=== PATIENT | male | born 1950 | race Caucasian/White ===

== ENCOUNTER 2017-07-17 22:27 | Emergency (ER) | payer MEDICARE ==
[~2017-07-17] VITALS: Ht 180.3 cm; Wt 93.0 kg
[~2017-07-17 22:27] MED LIST: Aldactone100 MG PO; DIPH50 PO; MIRT15 PO; QUET100 PO; QUET300 PO
[2017-07-18 01:15] LABS: Calcium, Ionized (POC) 1.23 mmol/L (1.10-1.46); Chloride (POC) 107 mmol/L (98-108); Creatinine (POC) 0.8 mg/dL (0.8-1.3); Glucose (ISTAT POC) 116 mg/dL (70-99); Hemoglobin (POC) 13.9 g/dL (13.5-17.5); Potassium (POC) 3.3 mmol/L (3.5-5.5); Sodium (POC) 147 mmol/L (135-148); Total CO2 (POC) 27 mmol/L (21-32)
[2018-05-22] MEDS ORDERED: LACT10SY PO (10:44)
[2018-05-22] MEDS ORDERED: Hair, Skin & N1 EACH PO (10:45)
[2018-06-02] MEDS ORDERED: Cipro500 MG PO (00:57)
== END 2017-07-18 01:20 | disposition home or self-care (01) ==
LOC: ER 22:27
PROVIDERS: Emergency Medicine
DX: F20.9 Schizophrenia, unspecified (principal); F10.20 Alcohol dependence, uncomplicated; F17.200 Nicotine dependence, unspecified, uncomplicated
CPT/HCPCS: 36415; 80047; 85014; 99284

== ENCOUNTER 2018-06-02 19:39 | Emergency (ER) | payer MEDICARE ==
[~2018-06-02] VITALS: Ht 175.3 cm; Wt 90.7 kg
[~2018-06-02 19:39] MED LIST changes: +Cipro500 MG PO; +Hair, Skin & N1 EACH PO; +LACT10SY PO
== END 2018-06-02 20:17 | disposition home or self-care (01) ==
LOC: ER 19:39
DX: N39.0 Urinary tract infection, site not specified (principal); F17.210 Nicotine dependence, cigarettes, uncomplicated; Z59.0 Homelessness
CPT/HCPCS: 99281

== ENCOUNTER 2018-07-30 20:45 | Inpatient (IN) | payer MEDICARE ==
[~2018-07-30] VITALS: Ht 180.3 cm; Wt 95.4 kg
[2018-07-30 22:39] LABS: BASOPHILS ABSOLUTE AUTO 0.04 K/mm3 (0.00-0.23); BASOPHILS PERCENT AUTO 1 % (0-2); EOSINOPHILS ABSOLUTE AUTO 0.09 K/mm3 (0.00-0.68); EOSINOPHILS PERCENT AUTO 1 % (0-6); Hemoglobin 13.8 g/dL (13.5-17.5); IMMATURE GRAN ABSOLUTE AUTO 0.02 K/mm3 (0.00-0.10); IMMATURE GRAN PERCENT AUTO 0 % (0-1); LYMPHOCYTES ABSOLUTE AUTO 1.49 K/mm3 (0.84-5.20); LYMPHOCYTES PERCENT AUTO 17 % (21-46); MONOCYTES ABSOLUTE AUTO 1.18 K/mm3 (0.16-1.47); MONOCYTES PERCENT AUTO 14 % (4-13); Mean Corpuscular HGB 33.1 pg (26.0-34.0); Mean Corpuscular HGB Conc 33.7 g/dL (31.5-36.5); Mean Corpuscular Volume 98 fL (80-100); NEUTROPHILS ABSOLUTE AUTO 5.93 K/mm3 (1.96-9.15); NEUTROPHILS PERCENT AUTO 68 % (41-73); Platelet Count 166 K/mm3 (150-400); RDW Coefficient Variation 14.3 % (11.7-14.2); Red Blood Cell Count 4.17 M/mm3 (4.30-5.90); White Blood Cell Count 8.75 K/mm3 (4.00-11.30)
[2018-07-30 22:59] LABS: Alanine Aminotransfer (ALT/SGP 33 U/L (12-78); Albumin, Blood 2.8 g/dL (3.4-5.0); Albumin/Globulin Ratio 0.6 (0.8-1.8); Alk Phos 98 U/L (50-136); Anion Gap 8 mmol/L (6-16); Aspartate Aminotrans (AST/SGOT 31 U/L (12-37); Bilirubin, Total 2.2 mg/dL (0.1-1.0); Blood Urea Nitrogen 9 mg/dL (8-24); Bun/Creatinine Ratio 10.9 (12.0-20.0); CO2, Blood 23 mmol/L (21-32); Calcium, Blood 8.8 mg/dL (8.5-10.1); Chloride, Blood 110 mmol/L (98-108); Creatinine, Blood 0.83 mg/dL (0.60-1.20); Globulin, Blood 4.8 g/dL (2.2-4.0); Glomerular Filtration Rate >60 (60-); Glucose, Blood 167 mg/dL (70-99); Potassium, Blood 3.4 mmol/L (3.5-5.5); Sodium, Blood 141 mmol/L (136-145); Total Protein, Blood 7.6 g/dL (6.4-8.2)
[2018-07-31 01:04] LABS: Magnesium, Blood 2.1 mg/dL (1.6-2.4)
[2018-07-31 04:27] LABS: Hemoglobin 12.7 g/dL (13.5-17.5); Mean Corpuscular HGB 32.9 pg (26.0-34.0); Mean Corpuscular HGB Conc 33.4 g/dL (31.5-36.5); Mean Corpuscular Volume 98 fL (80-100); Mean Platelet Volume 10.9 fL (9.1-12.4); Platelet Count 147 K/mm3 (150-400); RDW Coefficient Variation 14.1 % (11.7-14.2); RDW Standard Deviation 51.4 fL (35.1-46.3); Red Blood Cell Count 3.86 M/mm3 (4.30-5.90); White Blood Cell Count 8.77 K/mm3 (4.00-11.30)
[2018-07-31 04:41] LABS: International Normalized Ratio 1.29; Prothrombin Time Results 13.4 Sec (9.7-11.5)
[2018-07-31 04:44] LABS: Anion Gap 8 mmol/L (6-16); Blood Urea Nitrogen 9 mg/dL (8-24); Bun/Creatinine Ratio 10.1 (12.0-20.0); CO2, Blood 24 mmol/L (21-32); Calcium, Blood 8.4 mg/dL (8.5-10.1); Chloride, Blood 111 mmol/L (98-108); Creatinine, Blood 0.89 mg/dL (0.60-1.20); Glomerular Filtration Rate >60 (60-); Glucose, Blood 147 mg/dL (70-99); Potassium, Blood 3.2 mmol/L (3.5-5.5); Sodium, Blood 143 mmol/L (136-145)
--- NOTE | 2018-07-31 04:51 | NUR ---
SHIFT SUMMARY PT ADMITTED FOR CELLULITIS/ABSCESS OF RLE. PT HAS A 20 IV IN THE RT FOREARM, PATENT. HE IS A 1 PERSON STANDBY ASSIST FOR NOW DUE TO CONFUSION AND I AM UNSURE OF HIS AMBULATION ABILITIES. HE IS UTILIZING A URINAL FOR NOW. HE IS HOMELESS SO PLACEMENT MAY BE AN ISSUE. WOUND CULTURES HAVE BEEN SENT, HE HAS HAD A LOW GRADE FEVER SINCE ADMIT. PT DENIES ALCOHOL USE, BUT WE ARE DOING CIWA EVALS PRN AND Q 2HRS UNTIL CLEAR OF CONCERN. HIS AFFECTED LEG IS NOW ELEVATED ABOVE HEART, PER ORDERS. HE HAD A CRITICAL LACTIC DRAWN IN THE ED OF 2.2 (0.4-2.0 W[address]). A CT W/CONTRAST CONFIRMED CELLULITIS. HE IS ON ROOM AIR AND REGULAR DIET. IV ZOSYN AND VANCO (MANAGED BY PHARMACY) HAVE BEEN GIVEN SO FAR. ALSO TO RECEIVE NS-KCL. HE IS A Q2 HR TURN, AND ON ASPIRATION PRECAUTIONS.
--- NOTE | 2018-07-31 06:40 | NUR ---
*LATE ENTRY* RECEIVED HANDOFF FROM ED NURSE DEV AND 0033 HRS RECEIVED HANDOFF REPORT. PT ADMITTED FOR CELLULITIS/ABSCESS OF RLE. PT HAS LOW GRADE FEVER, ON RA, NORMALLY WALKS. PT IS HOMELESS. PT HAD CRITICAL LAB VALUE OF 2.2 IN ED. ED SENT WOUND CULTURE. PT TRANSFERED TO MED FLOOR WNL. ORIENTED TO UNIT, VS TAKEN. PT ON IV ANTIBIOTICS AND NS KCL. LOW POTASSIUM LAB VALUE. WILL CONTINUE TO [id number]
--- NOTE | 2018-07-31 16:47 | NUR ---
I asked the patient if I could be involved in his care on 08/01/18 and the patient agreed.
--- NOTE | 2018-07-31 19:30 | NUR ---
SHIFT SUMMARY: NO ACUTE CHANGES TO REPORT THIS SHIFT. PT A&O; CALM AND COOPERATIVE WITH CARE. NO C/O PAIN OR NAUSEA THIS SHIFT. CELLULITIS RLE; DRESSING IN PLACE; IV ABX CONTINUING. CIWA Q2H. REPORT GIVEN TO ONCOMING RN.
[2018-08-01 04:31] LABS: BASOPHILS ABSOLUTE AUTO 0.04 K/mm3 (0.00-0.23); BASOPHILS PERCENT AUTO 1 % (0-2); EOSINOPHILS ABSOLUTE AUTO 0.21 K/mm3 (0.00-0.68); EOSINOPHILS PERCENT AUTO 4 % (0-6); Hematocrit 35.9 % (37.0-53.0); IMMATURE GRAN ABSOLUTE AUTO 0.01 K/mm3 (0.00-0.10); IMMATURE GRAN PERCENT AUTO 0 % (0-1); LYMPHOCYTES ABSOLUTE AUTO 1.16 K/mm3 (0.84-5.20); LYMPHOCYTES PERCENT AUTO 19 % (21-46); MONOCYTES ABSOLUTE AUTO 0.66 K/mm3 (0.16-1.47); MONOCYTES PERCENT AUTO 11 % (4-13); Mean Corpuscular HGB 33.5 pg (26.0-34.0); Mean Corpuscular HGB Conc 33.4 g/dL (31.5-36.5); Mean Corpuscular Volume 100 fL (80-100); Mean Platelet Volume 10.7 fL (9.1-12.4); NEUTROPHILS ABSOLUTE AUTO 3.92 K/mm3 (1.96-9.15); NEUTROPHILS PERCENT AUTO 65 % (41-73); Platelet Count 141 K/mm3 (150-400); RDW Coefficient Variation 13.9 % (11.7-14.2); RDW Standard Deviation 51.8 fL (35.1-46.3); Red Blood Cell Count 3.58 M/mm3 (4.30-5.90)
[2018-08-01 04:47] LABS: Albumin, Blood 2.2 g/dL (3.4-5.0); Anion Gap 6 mmol/L (6-16); Blood Urea Nitrogen 9 mg/dL (8-24); Bun/Creatinine Ratio 10.8 (12.0-20.0); CO2, Blood 23 mmol/L (21-32); Chloride, Blood 115 mmol/L (98-108); Creatinine, Blood 0.83 mg/dL (0.60-1.20); Glomerular Filtration Rate >60 (60-); Glucose, Blood 106 mg/dL (70-99); Phosphorus, Blood 2.3 mg/dL (2.5-4.9); Potassium, Blood 3.5 mmol/L (3.5-5.5); Sodium, Blood 144 mmol/L (136-145)
--- NOTE | 2018-08-01 06:34 | NUR ---
SHIFT SUMMARY PT STATED HE DIDN'T REALLY SLEEP THROUGH NIGHT BUT HE DOESN'T REALLY ANYHOW HE SAID. CIWA WAS 3 SOME TREMORS IN HANDS FELT. HE DOZED ON AND OFF FOR A LITTLE BUT WAS AWAKE A LOT OF THE NIGHT. NO C/O PAIN. USING URINAL. CALL LIGHT REACH
--- NOTE | 2018-08-01 07:01 | NUR ---
ASSUMED CARE OF PT- BEDSIDE REPORT COMPLETED WITH NIGHT RN TREVER, PROCESS WORKER MICHELLE PRESENT FOR REPORTPT APPROVED OF STUDENT ASSISTING WITH CARE. PT APPEARS ALERT AND ORIENTED, CIWA ORDERED. PT STATED [place] AND IS NOT ALLOWED TO DRINK, STATED HE HAS NOT HAD A DRINK IN A YEAR. PT HAS Hx SCHITZOPHRENIA AND MAY NOT BE ORIENTED HE APPEARS WILL CONTINUE TO MONITOR CIWA. CURRENT SCORE IS 3. PER REPORT FROM NIGHT RN THIS IS THE AVERAGE SCORE ON THE CIWA THAT THE PT RECIEVED T/O THE NIGHT.
[2018-08-01 15:47] LABS: Vancomycin, Trough 11.1 ug/mL (5.0-10.0)
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
[2018-08-02 04:40] LABS: BASOPHILS ABSOLUTE AUTO 0.03 K/mm3 (0.00-0.23); BASOPHILS PERCENT AUTO 1 % (0-2); EOSINOPHILS ABSOLUTE AUTO 0.22 K/mm3 (0.00-0.68); EOSINOPHILS PERCENT AUTO 4 % (0-6); Hematocrit 36.8 % (37.0-53.0); Hemoglobin 12.4 g/dL (13.5-17.5); IMMATURE GRAN ABSOLUTE AUTO 0.01 K/mm3 (0.00-0.10); IMMATURE GRAN PERCENT AUTO 0 % (0-1); LYMPHOCYTES ABSOLUTE AUTO 0.81 K/mm3 (0.84-5.20); LYMPHOCYTES PERCENT AUTO 16 % (21-46); MONOCYTES ABSOLUTE AUTO 0.52 K/mm3 (0.16-1.47); MONOCYTES PERCENT AUTO 10 % (4-13); Mean Corpuscular HGB 33.5 pg (26.0-34.0); Mean Corpuscular HGB Conc 33.7 g/dL (31.5-36.5); Mean Corpuscular Volume 100 fL (80-100); Mean Platelet Volume 10.7 fL (9.1-12.4); NEUTROPHILS ABSOLUTE AUTO 3.43 K/mm3 (1.96-9.15); NEUTROPHILS PERCENT AUTO 68 % (41-73); Platelet Count 155 K/mm3 (150-400); RDW Coefficient Variation 13.8 % (11.7-14.2); RDW Standard Deviation 50.5 fL (35.1-46.3); White Blood Cell Count 5.02 K/mm3 (4.00-11.30)
[2018-08-02 05:09] LABS: Albumin, Blood 2.1 g/dL (3.4-5.0); Anion Gap 8 mmol/L (6-16); Blood Urea Nitrogen 8 mg/dL (8-24); Bun/Creatinine Ratio 9.7 (12.0-20.0); CO2, Blood 21 mmol/L (21-32); Calcium, Blood 8.2 mg/dL (8.5-10.1); Chloride, Blood 117 mmol/L (98-108); Creatinine, Blood 0.83 mg/dL (0.60-1.20); Glomerular Filtration Rate >60 (60-); Glucose, Blood 100 mg/dL (70-99); Magnesium, Blood 1.9 mg/dL (1.6-2.4); Phosphorus, Blood 2.7 mg/dL (2.5-4.9); Potassium, Blood 3.6 mmol/L (3.5-5.5); Sodium, Blood 146 mmol/L (136-145)
--- NOTE | 2018-08-02 05:51 | NUR ---
SHIFT SUMMARY PT VERY PLEASANT CALM SMILEY COOPERATIVE. CIWA SCORE 1-2 ALL SHIFT. HE SLEPT ON AND OFF T/O NOC C OCCASIONAL SNORING NOTED. USING URINAL IN BED. USING CALL LIGHT APPROPRIATELY. NO C/O PAIN.
--- NOTE | 2018-08-02 12:38 | NUR ---
CALLED DR JIMENEZ PT HAS FINE CRACKLES IN THE BASES, THIS IS A CHANGE FROM YESTERDAY REQUESTED HOLD FOR IVF UNTIL DR CAN SEE THE PT. OK TO HOLD THE IVF AT THIS TIME. IV SALINE LOCKED.
--- NOTE | 2018-08-02 17:03 | NUR ---
PT HAS BEEN HAPPY AND PLEASENTLY CONFUSED T/O THE SHIFT UNTIL JUST BEFORE 1700. PT BECAME AGGITATED AND PARANOID TALKING TO PELPLE NOT IN THE ROOM. PT APPEARED TO BE GETTING VIOLENT IN HIS FACIAL FEATURES, MANERISIMS AND EXPRESSIONS. PT MEDICATED WITH 50MG LIBRIUM PER EMAR. PT SCORED 17 ON CIWA. WHILE PT WAS BEING MEDICATED HE BEGAN TO TALK ABOUT ASSASSINS AND MICROCHIPS IN THE BRAINS THAT CAME FROM ALIEN TECHNOLOGY. PT ABSOLUTELY REFUSED TO ALLOW RN TO DO THE BANDAGE CHANGE, PER THE PT ONLY THE DOCTOR THAT DID THE PROCEDURE COULD CHANGE IT. WILL REATTEMPT LATER WHEN THE PT IS LESS AGGITATED.
--- NOTE | 2018-08-02 19:23 | NUR ---
SHIFT SUMMARY- PT MUCH MORE PLEASENT, HOWEVER HE IS REFUSING TO ALLOW STAFF TO CHANGE THE WOUND DRESSING. BEDSIDE REPORT COMPLTE WITH NIGHT RICK PALACIO. PT SITTING UP IN BED WITH THE CALL LIGHT IN REACH, NO CURRENT C/O PAIN. PT HAD A FEVER OF 100.4 TODAY MEDICATED WITH TYLENOL NEXT TEMP WAS 100.8. REMOVED BLANKETS ANDF TURNED DOWN THE ROOM TEMP, NEXT TEMP CHECK WAS 101.3, 2 HOURS AFTER TYLENOL HAD BEEN GIVEN. WHEN IV VANCO COMPLETED RECHECKED AND TEMP WAS BACK DOWN TO 99.4. PT IS ALERT AND ORIENTED TO SELF, PLEASENT AT THIS TIME.
[2018-08-03 04:25] LABS: BASOPHILS ABSOLUTE AUTO 0.04 K/mm3 (0.00-0.23); BASOPHILS PERCENT AUTO 1 % (0-2); EOSINOPHILS ABSOLUTE AUTO 0.24 K/mm3 (0.00-0.68); EOSINOPHILS PERCENT AUTO 5 % (0-6); Hematocrit 36.5 % (37.0-53.0); Hemoglobin 12.2 g/dL (13.5-17.5); IMMATURE GRAN ABSOLUTE AUTO 0.01 K/mm3 (0.00-0.10); IMMATURE GRAN PERCENT AUTO 0 % (0-1); LYMPHOCYTES PERCENT AUTO 20 % (21-46); MONOCYTES ABSOLUTE AUTO 0.53 K/mm3 (0.16-1.47); MONOCYTES PERCENT AUTO 11 % (4-13); Mean Corpuscular HGB 33.2 pg (26.0-34.0); Mean Corpuscular HGB Conc 33.4 g/dL (31.5-36.5); Mean Corpuscular Volume 99 fL (80-100); Mean Platelet Volume 10.6 fL (9.1-12.4); NEUTROPHILS ABSOLUTE AUTO 3.19 K/mm3 (1.96-9.15); NEUTROPHILS PERCENT AUTO 64 % (41-73); Platelet Count 166 K/mm3 (150-400); RDW Coefficient Variation 13.8 % (11.7-14.2); RDW Standard Deviation 50.7 fL (35.1-46.3); Red Blood Cell Count 3.68 M/mm3 (4.30-5.90); White Blood Cell Count 5.01 K/mm3 (4.00-11.30)
--- NOTE | 2018-08-03 05:09 | NUR ---
SHIFT SUMMARY PT HAD SMALL BM DURING THE NIGHT. CHARITY PAIN, SLEPT FAIR. CIWA 5-6 DURING THE NIGHT. WILL CONTINEU TO MONITOR.
[2018-08-03 15:40] LABS: Vancomycin, Trough 14.2 ug/mL (5.0-10.0)
--- NOTE | 2018-08-03 16:13 | NUR ---
WOUND DRESSING CHANGED REMOVED PACKING FROM THE PTS WOUND BED, CLEANED WOUND AND REAPPLIED CANDIDA FORM PACKING AND RE WRAPPED THE WOUND USEING A CLEAN TECHNIQUE, PT TOLERATED THE PROCEDURE WELL
--- NOTE | 2018-08-03 19:19 | NUR ---
PT IS ALERT ORIENTED X3, HOWEVER THE PT HAS GRADIOUS DILUSIONS AT TIMES, THE PT APPEARS TO BE BREATHING EASILY ON RA AT THIS TIME, THE PT DENIED PAIN T/O THE DAY, PT REMAINED IN BED T/O THE DAY, THE PT WAS ABLE TO MOVE HIMSELF IN BED EASILY HOWEVER, WOUND DRESSING ON PTS RIGHT LEG CHANGED THE PT TOLERATED IT WELL, CALL LIGHT IN REACH, BED IN LOW POSITION, BED ALARM ON
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
[2018-08-04 08:50] LABS: BASOPHILS ABSOLUTE AUTO 0.04 K/mm3 (0.00-0.23); BASOPHILS PERCENT AUTO 1 % (0-2); EOSINOPHILS ABSOLUTE AUTO 0.23 K/mm3 (0.00-0.68); EOSINOPHILS PERCENT AUTO 4 % (0-6); Hematocrit 39.7 % (37.0-53.0); Hemoglobin 13.4 g/dL (13.5-17.5); IMMATURE GRAN ABSOLUTE AUTO 0.02 K/mm3 (0.00-0.10); IMMATURE GRAN PERCENT AUTO 0 % (0-1); LYMPHOCYTES ABSOLUTE AUTO 0.76 K/mm3 (0.84-5.20); LYMPHOCYTES PERCENT AUTO 13 % (21-46); MONOCYTES ABSOLUTE AUTO 0.57 K/mm3 (0.16-1.47); MONOCYTES PERCENT AUTO 9 % (4-13); Mean Corpuscular HGB 33.3 pg (26.0-34.0); Mean Corpuscular HGB Conc 33.8 g/dL (31.5-36.5); Mean Corpuscular Volume 99 fL (80-100); Mean Platelet Volume 10.5 fL (9.1-12.4); NEUTROPHILS ABSOLUTE AUTO 4.43 K/mm3 (1.96-9.15); NEUTROPHILS PERCENT AUTO 73 % (41-73); Platelet Count 172 K/mm3 (150-400); RDW Coefficient Variation 13.9 % (11.7-14.2); RDW Standard Deviation 50.5 fL (35.1-46.3); Red Blood Cell Count 4.02 M/mm3 (4.30-5.90); White Blood Cell Count 6.05 K/mm3 (4.00-11.30)
[2018-08-04 09:11] LABS: Anion Gap 7 mmol/L (6-16); Blood Urea Nitrogen 7 mg/dL (8-24); Bun/Creatinine Ratio 8.9 (12.0-20.0); CO2, Blood 26 mmol/L (21-32); Calcium, Blood 7.7 mg/dL (8.5-10.1); Chloride, Blood 112 mmol/L (98-108); Creatinine, Blood 0.78 mg/dL (0.60-1.20); Glomerular Filtration Rate >60 (60-); Glucose, Blood 144 mg/dL (70-99); Potassium, Blood 3.6 mmol/L (3.5-5.5); Sodium, Blood 145 mmol/L (136-145)
--- NOTE | 2018-08-04 13:30 | NUR ---
A BEDBATH WAS OFFERED TO PATIENT WELL SHOWER AND PATIENT DECLINED THIS MORNING WELL THIS AFTERNOON. PATIENT STATED TO ME THAT HE ONLY WANTED TO WASH HIS HAIR. A SHOWER CAP WAS OFFERED AND PATIENT DECLINED. HE WAS VERY AGGIATATED AND WAS REFUSING ANYTHINGTHAT WAS OFFERED TO HIM AND CARE THAT WAS BEING OFFERED OR PROVIDED. RN NOTIFIED.
--- NOTE | 2018-08-04 17:53 | NUR ---
PLACED PATIENT ON BEDPAN AFTER PATIENT WAS ON BEDPAN FOR A WHILE AND DID NOT CALL TO GET OFF I WENT IN MULTIPLE TIMES TO TRY TO TAKE PATIENT OFF AND PATIENT HAS REFUSED MULTIPLE TIMES TO GET OFF AND STATES TO ME THAT HE IS STILL GOING AND GETS UPSET AT ME WHEN I LET HIM KNOW THAT I AM GOING TO GET HIM OFF. PATIENT IS REFUSING TO GET OFF THE BEDPAN. RN NOTIFIED.
--- NOTE | 2018-08-04 18:07 | NUR ---
PATIENT IS OFF THE BEDPAN.
--- NOTE | 2018-08-04 19:09 | NUR ---
SHIFT SUMMARY PT A&OX1, PT IRRITBLE, NOT COOPERATIVE WITH CARE. PT GRANDIOSE DELUSIONS, STATING HES "STILL PART OF THE FBI". PT DENIES PAIN, SOB AND N/V DURING SHIFT. PT MOVES SELF IN BED. PT HAD ONE INCONTINENT EPISODE STOOL THIS AFTERNOON. PT RECEIVING PO ANTIBIOTICS. PT RECEIVING LACTULOSE. PT DECLINED DRESSING CHANGE T/O SHIFT, STATING HE WOULD ALLOW IT " LATER". VSS/ABEBRILE. NO OTHER ACUTE CHANGES NOTED DURING SHIFT. REPORT GIVEN TO ONCOMING RN.
--- NOTE | 2018-08-05 05:20 | NUR ---
SHIFT SUMMARY PT IRRITABLE DURING THE NIGHT, REFUSING DRESSING CHANGE. ALSO REFUSING FOR FACE BOSS TO DO HIS CARES. PT HAD TEMP 101.1, TYLENOL GIVEN. PT AFEBRILE THIS AM, WILL CONTINUE TO MONITOR.
[2018-08-05 09:11] LABS: BASOPHILS ABSOLUTE AUTO 0.05 K/mm3 (0.00-0.23); BASOPHILS PERCENT AUTO 1 % (0-2); EOSINOPHILS PERCENT AUTO 3 % (0-6); Hematocrit 40.9 % (37.0-53.0); Hemoglobin 13.6 g/dL (13.5-17.5); IMMATURE GRAN ABSOLUTE AUTO 0.03 K/mm3 (0.00-0.10); IMMATURE GRAN PERCENT AUTO 0 % (0-1); LYMPHOCYTES ABSOLUTE AUTO 0.75 K/mm3 (0.84-5.20); LYMPHOCYTES PERCENT AUTO 10 % (21-46); MONOCYTES ABSOLUTE AUTO 0.56 K/mm3 (0.16-1.47); MONOCYTES PERCENT AUTO 7 % (4-13); Mean Corpuscular HGB Conc 33.3 g/dL (31.5-36.5); Mean Corpuscular Volume 99 fL (80-100); Mean Platelet Volume 10.6 fL (9.1-12.4); NEUTROPHILS ABSOLUTE AUTO 6.11 K/mm3 (1.96-9.15); NEUTROPHILS PERCENT AUTO 79 % (41-73); Platelet Count 191 K/mm3 (150-400); RDW Coefficient Variation 14.2 % (11.7-14.2); RDW Standard Deviation 51.3 fL (35.1-46.3); Red Blood Cell Count 4.12 M/mm3 (4.30-5.90)
[2018-08-05 09:28] LABS: Albumin, Blood 2.1 g/dL (3.4-5.0); Anion Gap 7 mmol/L (6-16); Blood Urea Nitrogen 7 mg/dL (8-24); Bun/Creatinine Ratio 8.1 (12.0-20.0); CO2, Blood 25 mmol/L (21-32); Chloride, Blood 110 mmol/L (98-108); Creatinine, Blood 0.86 mg/dL (0.60-1.20); Glomerular Filtration Rate >60 (60-); Glucose, Blood 183 mg/dL (70-99); Phosphorus, Blood 1.6 mg/dL (2.5-4.9); Potassium, Blood 3.6 mmol/L (3.5-5.5); Sodium, Blood 142 mmol/L (136-145)
--- NOTE | 2018-08-05 15:54 | NUR ---
SHIFT SUMMARY I HAVE BEEN DOING CIWA SCORES ON THIS PT, BUT HE IS AVG. 6-7 IN SCORES FOR ME. HE HAS A HX OF REFUSING CARE, LABS, DRESSING CHANGES. FOR ME HE HAS BEEN COOPERATIVE. I DID CHANGE HIS DRESSING TODAY. HE HAS CELLULITIS OF THE RT CALF, WITH AN ULCERATION THAT IS BANDAGED. HE IS RUNNING A LOW GRADE FEVER, ONLY COMPLAINING OF DISCOMFORT WHEN I CHANGED HIS DRESSING. I GAVE HIM TYLENOL FOR THAT. THIS PT IS NOT ON TELEMETRY OR O2 THERAPY. HE IS A SMOKER, HAS A HX OF ALCOHOL USE, SCHIZOPHRENIA, HEPATITIS C. HE IS HOMELESS AND HE DOES HAVE PERSONAL VALUABLES STORED IN THE HOSPITAL'S SAFE. CIWA'S ARE PERFORMED Q2 HRS. IF SCORES ARE <8 FOR 72 HRS, CIWA SCORING MAY BE COMPLETED AND DC'D.
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
[2018-08-06 05:12] LABS: Albumin, Blood 2.1 g/dL (3.4-5.0); Anion Gap 8 mmol/L (6-16); Blood Urea Nitrogen 8 mg/dL (8-24); Bun/Creatinine Ratio 9.7 (12.0-20.0); CO2, Blood 23 mmol/L (21-32); Chloride, Blood 111 mmol/L (98-108); Creatinine, Blood 0.82 mg/dL (0.60-1.20); Glomerular Filtration Rate >60 (60-); Glucose, Blood 102 mg/dL (70-99); Phosphorus, Blood 1.9 mg/dL (2.5-4.9); Potassium, Blood 3.5 mmol/L (3.5-5.5); Sodium, Blood 142 mmol/L (136-145)
--- NOTE | 2018-08-06 12:17 | NUR ---
NOTIFIED DR. LOPEZ PT REFUSED LABS MULTIPLE TIMES THIS AM AND LAB IS GOING TO CANCEL ORDER DUE TO PT REFUSING. NOTIFIED DR. LOPEZ PT REFUSED PHYSICAL THERAPY AND REFUSED WOUND CARE. NOTIFIED DR. LOPEZ CONSULT TO DR. EM HAS BEEN CALLED IN. NO NEW ORDERS AT THIS TIME.
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
--- NOTE | 2018-08-06 16:48 | NUR ---
Mr. Adamson was welcoming of companionship and conversation. He smiles easily and spoke at length about the fact that he is God. "Leonardo is my son." "Meeta was written about me." It was an interesting conversation and he appeared deeply committed to his "Holy" identity. When I offered to pray, he said there was no need. He prayed for me though, because "as God, I approve of you." I was much relieved to hear this. I will remain available.
--- NOTE | 2018-08-06 18:43 | NUR ---
SHIFT SUMMARY- PT AXO TO SELF. PT IRRITABLE TODAY. PT REFUSED AFTERNOON LACTULOSE AND KPHOS AND PM LACTULOSE. PT REFUSED WOUND CARE. SEE PREVIOUS NOTE. DR. EM IN TO SEE PT TODAY. PT REFUSED TO ALLOW DR. EM TO REMOVE OLD PACKING AND PUT NEW IN. PT ALLOWED TO REINFORCE OLD PACKING WITH ABD AND ALIN WRAP. PT DENIES PAIN. PT HAD A FEVER OF 100.3 THIS AM. MEDS GIVEN PER EMAR. PT REFUSED TO WORK WITH PHYSICAL THERAPY AND REFUSED LABS TODAY. PT TOLD HOUSEKEEPING TO GET OUT. PT HAS A LOW GRADE TEMP OF 99.7 THIS PM. MEDS GIVEN PER EMAR. NO OTHER SIGNIFICANT CHANGES THIS SHIFT.
--- NOTE | 2018-08-07 06:03 | NUR ---
SHIFT SUMMARY PT REFUSED ALL SCHEDULED 2100 MEDS. REFUSED DRESSING CHANGE, JUST WANTED TO SLEEP. SLEPT T/O NOC. USING URINAL. NO C/O PAIN. BED ALARM IN USE
--- NOTE | 2018-08-07 11:20 | NUR ---
PT COOPERATION PT AGREED TO TAKING MEDICATIONS THIS AM. PT DID REFUSED LOVENOX. PT ALLOWED FOR DRESSING TO BE CHANGED AND REPACKED. NEW BEDDING PLACED & PICTURES TAKEN OF BUTTOCKS. PT STATED THAT HE IS OFTEN INC OF URINE & STOOL. WILL CONTINUE TO MONITOR.
--- NOTE | 2018-08-07 17:34 | NUR ---
SHIFT SUMMARY PT WAS VERY COOPERATIVE THIS SHIFT. PT AGREED TO MEDICATIONS, DRESSING CHANGE, AND A BED BATH THIS SHIFT. PT IN VERY PLEASANT MOOD THIS AFTERNOON. BARRIER CREAM APPLIED TO PT BUTTOCKS & HILARIO AREA. PT INSTRUCTED TO NOTIFY STAFF WHEN HE HAS AN ACCIDENT. PT STATED HE UNDERSTOOD. CONSULT FOR PSYCH PLACED. NO OTHER CHANGES IN ASSESSMENT AT THIS TIME. VSS. WILL CONTINUE TO MONITOR UNTIL TURNOVER IS COMPLETE.
--- NOTE | 2018-08-08 07:33 | NUR ---
Rn summary: Patient is stable. He has rested well. During the middle of the night he was awake and talking to someone who was not there. He continues to have delusions of grandeur, he told me he has 147 wives. Pt has used the urinal and bed has been dry this shift. Buttocks with excoriation, calamine pink cream applied. Pt has been pleasant but he polietly refused his meds after 2 tries 2 hours apart. Explained why he needed the antibiotic but he said 'No thank you". Call light in reach.
--- NOTE | 2018-08-08 11:21 | NUR ---
0900--SPOKE TO DR LOPEZ. PT HAS 102 TEMP THIS MORNING, NOW DOWN TO 101.5 WITH COOLER ROOM. RERUSING TYLENOL (AND ALL OTHER MEDS), DR LOPEZ AWARE. TM
--- NOTE | 2018-08-08 19:22 | NUR ---
SHIFT SUMMARY IRENE DECLINED ALL MEDS AND CARE TODAY. HE DID ALLOW A DRESSING CHANGE WITH DR FRANKEL WITH A PEPSI FLOAT TO INCENTIVIZE HIM. GRAND DELUSIONS OF 147 WIVES, BEING A LINDA SOLDIER, ETC. DR BARAHONA CAME BUT PT DECINED TO TALK TO HIM. VERY EXCORIATED BOTTOM BUT DECLINES CLEAN UPS MOST OF THE TIME. 102 AND 101 TEMPS TODAY, DR LOPEZ MADE AWARE. PT DECLINED TYLENOL. WCTM
[2018-08-08 23:32] LABS: Appearance, Urine Clear (Clear); Bilirubin, Urine Neg (Neg); Blood, Urine 1+ (Neg); Color, Urine Yellow (P-Yellow); Glucose Qualitative, Urine Neg (Neg); Ketones, Urine Neg (Neg); Leukocyte Esterase, Urine Neg (Neg); Nitrite, Urine Neg (Neg); Protein, Urine Neg (Neg); Urobilinogen, Urine 1+ (Normal)
[2018-08-08 23:38] LABS: Bacteria Not Seen /hpf; Red Blood Cells, Urine 0-2 /hpf (0-2); Squamous Epithelial Cells Not Seen /hpf (Few); White Blood Cells, Urine Not Seen /hpf (0-5)
--- NOTE | 2018-08-08 23:42 | NUR ---
REFUSING CARE THE PT IS REFUSING TO ALLOW LAB TO COLLECT BLOOD CULTURES. HE ALSO REFUSED TO TAKE ANY PO MEDS, THOUGH THIS RN WAS ABLE TO HOOK HIM UP FOR HIS FIRST DOSE OF IV VANCOMYCIN.
--- NOTE | 2018-08-09 01:48 | NUR ---
BLOOD CULTURE THE PT HAS REFUSED A BLOOD CULTURE COLLECTION ALL THREE TIMES ASKED. THE HOSPITALIST, DR MARQUEZ, WAS CONSULTED. THE CURRENT ORDER WAS CANCELED, AND ANOTHER ORDER PLACED FOR AM LAB TIME. IF THE PT REFUSES AGAIN, THEN PER THE HOSPITALIST THE ORDER CAN BE CANCELED.
--- NOTE | 2018-08-09 05:49 | NUR ---
SHIFT SUMMARY PT IS A 68 Y/O MALE, ADMITTED FOR RLE CELLULITIS. HIS ORIENTATION IS DIFFICULT TO ASSESS, THE PT HAS A HX OF SCHIZOPHRENIA AND IS CURRENTLY HAVING GRANDIOSE AND PARANOID DELUSIONS AND HALLUCINATIONS. THE PT HAS BEEN RESISTANT TO CARE DURING THE NIGHT, REFUSING MOST OF HIS MEDICATIONS. HE ALSO REQUESTED A BED BATH AND LINEN CHANGE, BUT STATED THAT HE DIDN'T WANT "THOSE YOUNG WOMEN" DOING IT. THE PT REFUSED A BLOOD DRAW FOR BLOOD CULTURES (SEE PREVIOUS NOTE). VITALS REMAINED STABLE. NO OTHER ACUTE CHANGES IN PT CONDITION NOTED DURING THE NIGHT. WILL CONTINUE TO MONITOR AND TREAT.
--- NOTE | 2018-08-09 13:49 | NUR ---
PATIENT HAS REFUSED MULTIPLE TIMES FOR ME TO DO AN ASSESSMENT. HE HAS REFUSED CARE AND HAS ONLY MANAGED TO LET ONE PERSON DO HIS CARE. HE HAS REFUSED HIS MEDICATIONS TODAY. HIS BOTTOM IS RED, HE SITS IN HIS URINE AND REFUSES OUR HELP TO CHANGE HIM. SPOKE WITH DR. LOPEZ AND WILL ASSESS FOR ANY CHANGES IN CARE. NO ACUTE CHANGES AT THIS TIME. PATIENT STILL REFUSING MOST CARE. ASSESSING FOR FEVER AT THIS TIME.
--- NOTE | 2018-08-09 14:02 | NUR ---
PATIENT HAS CONTINUED TO REFUSE ALL CARE. NO CARE GIVEN BESIDES CHANIGNG THE PATIENT OCCASIONALLY. HIS BOTTOM IS VERY RAW. PATIENT HAS REFUSED WOUND CARE WITH DR. EM, DR. LOPEZ IN TO SEE THE PATIENT AND HE REFUSED CARE. SHE HAS DISCONTINUED THE VANCO AND WE WILL KEEP AN EYE ON HIS TEMPERATURE. IF HE STAYS AFEBRILE HE WILL BE DISCHARGED TOMORROW.
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
--- NOTE | 2018-08-09 17:04 | NUR ---
SHIFT SUMMARY PATIENT HAVING GRANDIOSE DELUSIONS AND REFUSING ALL CARE. WILL CONTINUE TO MONITOR FOR ANY SIGNS OF A FEVER. POTENTIAL DISCHARGE TOMORROW RELATED TO INABILITY TO PROVIDE CARE AND REFUSAL OF ALL CARE. PATIENT DOES NOT LIKE MEN AND HAS REFUSED TO "WORK WITH BLACKS". HE HAS BEEN RUDE TO STAFF ALL DAY. IV ANTIBIOTICS HAVE BEEN DISCONTINUED. IF PATIENT STAYS AFEBRILE HE WILL GET DISCHARGED TOMORROW AM. PATIENT HAS HIS HEAT IN HIS ROOM TURNED DOWN AND HE DOES NOT GET WARM BLANKETS PATIENT IS BUNDLING HIMSELF UP AND INCREASING HIS CORE BODY TEMPERATURE.
--- NOTE | 2018-08-10 03:56 | NUR ---
SHIFT SUMMARY PT AWAKE AT START OF SHIFT AND FOR A WHILE AFTER. REFUSED MOST CARE. GETS AGITATED VERY QUICKLY. REFUSED ABX, BUT CONSIDERED TAKING LACTULOSE, BRIEFLY, THEN STATED "I DON'T WANT NOTHIN". REFUSED ALL CARE. PT LATER C/O NEEDING A BATH. OFFERED TO ASSIST HIM TO SHOWER AND CHANGE RLE DRSG, BUT PT GOT ANGRY AND REFUSED. LATER AGREED TO PARTIAL BEDBATH. BUTTOCKS AND INNER THIGH/GROIN AREA EXCORIATED AND VERY RED. BARRIER CREAM APPLIED TO EXCORIATED AREAS. CLEAN/DRY LINENS PLACED ON BED. PT REFUSED ALL OTHER CARE AND ASSESSMENT. AT START OF SHIFT RM WAS VERY WARM AND PT HAD HEAVY COAT ON. VS TAKEN SHOWING SLIGHT TEMP. HEAT DECREASED IN RM, BUT PT REFUSED TO GIVE UP HEAVY JACKET. TEMP RECHEK'D AFTER RM STARTED TO COOL SHOWING TEMP COMING DOWN. TEMP LATER WNL'S WHEN RM RETURNED TO NORMAL TEMP WELL. PT CALLED FOR PEPSI THRU OUT THE SHIFT AND FOR URINAL TO BE EMPTIED, BUT REFUSED NEEDED CARE. POSSIBLE D/C TODAY. CALL LT IN REACH.
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
--- NOTE | 2018-08-10 13:57 | NUR ---
PATIENT SPOKE WITH DR. CONTI, WITH A SOFT VOICE AND SPOKE OF HIS NEED FOR A SHOWER AND HIS WANT FOR SOME PENICILLIN. DR. CONTI EXPLAINED THAT HIS MEDICATION WAS BETTER THAN PENICILLIN. HE STATED HE WOULD TRY IT. PATIENT HAS HAD A CHANGE IN EMOTIONS AND REACTION. HE IS SET UP FOR A SHOWER WHEN HE IS READY.
--- NOTE | 2018-08-10 17:45 | NUR ---
SHIFT SUMMARY PATIENT STILL REFUSING CARE FROM NURSING STAFF. NO GRANDIOSE DELUSIONS TODAY. PATIENT WAS PLEASANT AND CALM WITH DR. CONTI. WILL ASSESS FOR ANY CHANGES PRIOR TO END OF SHIFT.
--- NOTE | 2018-08-10 22:37 | NUR ---
08/10/18 2200 PT INSISTS ON HAVING SEVERAL BLANKETS BECAUSE "I'M COLD!" ALSO WANTED DOOR CLOSED COMPLETELY BUT RN STATED HE IS A FALL RISK AND STAFF NEED TO HEAR HIS BED ALARM. RN AGREED TO CLOSE DOOR PARTIALLY. SLIGHT FEVER DUE TO THESE ISSUES.
--- NOTE | 2018-08-11 06:39 | NUR ---
08/11/18 0600 VITALS STABLE THIS AM. DENIES ANY DISCOMFORT OR S/S. MORE COOPERATIVE THIS SHIFT FROM PREVIOUS DAY SHIFT. PT HAD REFUSED HIS MEDS LAST NIGHT AND NO REASON STATED.
--- NOTE | 2018-08-11 18:19 | NUR ---
SHIFT SUMMARY PATIENT HAS BEEN PLEASANT TODAY. NO ACUTE EPISODES OF GRANDIOSE DELUSIONS. HE TOOK HIS MORNING DOSE OF ANTIBIOTICS, AND TWO DOSES OF THE FUNGAL CREAM FOR HIS BOTTOM. HE DOES WANT A SHOWER BUT HAVE BEEN UNABLE TO DO SO THIS SHIFT.
--- NOTE | 2018-08-12 01:42 | NUR ---
08/12/18 0145 PT SLEEPING WELL IN BED. NO DISTRESS NOTED.
[2018-08-12 04:32] LABS: BASOPHILS ABSOLUTE AUTO 0.06 K/mm3 (0.00-0.23); BASOPHILS PERCENT AUTO 1 % (0-2); EOSINOPHILS ABSOLUTE AUTO 0.21 K/mm3 (0.00-0.68); EOSINOPHILS PERCENT AUTO 3 % (0-6); Hematocrit 40.9 % (37.0-53.0); Hemoglobin 13.6 g/dL (13.5-17.5); IMMATURE GRAN ABSOLUTE AUTO 0.03 K/mm3 (0.00-0.10); IMMATURE GRAN PERCENT AUTO 0 % (0-1); LYMPHOCYTES ABSOLUTE AUTO 1.93 K/mm3 (0.84-5.20); LYMPHOCYTES PERCENT AUTO 27 % (21-46); MONOCYTES ABSOLUTE AUTO 0.71 K/mm3 (0.16-1.47); MONOCYTES PERCENT AUTO 10 % (4-13); Mean Corpuscular HGB 32.9 pg (26.0-34.0); Mean Corpuscular HGB Conc 33.3 g/dL (31.5-36.5); Mean Corpuscular Volume 99 fL (80-100); Mean Platelet Volume 10.5 fL (9.1-12.4); NEUTROPHILS ABSOLUTE AUTO 4.23 K/mm3 (1.96-9.15); NEUTROPHILS PERCENT AUTO 59 % (41-73); Platelet Count 206 K/mm3 (150-400); RDW Coefficient Variation 14.2 % (11.7-14.2); RDW Standard Deviation 51.1 fL (35.1-46.3); Red Blood Cell Count 4.14 M/mm3 (4.30-5.90); White Blood Cell Count 7.17 K/mm3 (4.00-11.30)
[2018-08-12 04:58] LABS: Anion Gap 8 mmol/L (6-16); Blood Urea Nitrogen 8 mg/dL (8-24); Bun/Creatinine Ratio 9.3 (12.0-20.0); CO2, Blood 25 mmol/L (21-32); Calcium, Blood 8.1 mg/dL (8.5-10.1); Chloride, Blood 110 mmol/L (98-108); Creatinine, Blood 0.86 mg/dL (0.60-1.20); Glomerular Filtration Rate >60 (60-); Glucose, Blood 106 mg/dL (70-99); Phosphorus, Blood 2.5 mg/dL (2.5-4.9); Potassium, Blood 3.4 mmol/L (3.5-5.5); Sodium, Blood 143 mmol/L (136-145)
[2018-08-12 04:59] LABS: Albumin, Blood 2.1 g/dL (3.4-5.0)
--- NOTE | 2018-08-12 05:04 | NUR ---
08/12/18 0500 LISTENING TO THE RADIO. WAS AGITATED EARLIER WHEN VITALS WERE TAKEN HE WANTED DOOR COMPLETELY CLOSED AND STAFF INFORMED HIM THAT FOR SAFETY AND BODY TEMPERATURE REASONS IT CANNOT BE CLOSED COMPLETELY. THUS HIS BP WAS ELEVATED. GENERALLY,HE HAS BEEN COOPERATIVE AND PLEASANT.
[2018-08-12 09:20] LABS: Albumin, Blood 2.1 g/dL (3.4-5.0); Albumin/Globulin Ratio 0.4 (0.8-1.8); Bilirubin, Direct 0.5 mg/dL (0.0-0.3); Bilirubin, Total 1.5 mg/dL (0.1-1.0); Globulin, Blood 5.1 g/dL (2.2-4.0); Total Protein, Blood 7.2 g/dL (6.4-8.2)
--- NOTE | 2018-08-12 17:17 | NUR ---
PT IS ALERT. HE CAN BECOME CONFUSED AND DELUSIONAL AND REFUSE CARE. HE AGREED TO SOME OF HIS MORNING MEDICATIONS BUT EFUSED OTHERS SUCH THE NYSTATIN CREAM FOR HIS BUTTOCKS. HE INSISTED ON HAVING A SHOWER TODAY AND ONE WAS PROVIDED. AFTER HIS SHOWER HE WAS MUCH MORE COOPERATIVE WITH CARE. HE SLEPT IN HIS BED MOST OF THE DAY. HE CAN REPOSITION HIMSELF IN BED. THE WOUND ON HIS BUTTOCKS IS DRY AND RAW EXCORIATIONS. THE WOUND ON HIS LEFT CALF IS DRESSED WITH GAUZE AND COBAN.
--- NOTE | 2018-08-13 04:40 | NUR ---
08/13/18 0435 PT AWAKE AND CHEERFUL. COOPERATIVE THIS SHIFT AND MORE COMMUNICATIVE WITH STAFF. VITALS STABLE. TOOK ALL MEDS EXCEPT TOPICAL OINTMENT FOR PERINEAL/BUTTOCKS. HE SAYS IT WAS TOO STICKY AND HE FELT HE COULDN'T MOVE. DRESSING INTACT TO RT LOWER LEG.
--- NOTE | 2018-08-13 13:00 | NUR ---
NURSE SPOKE TO DR. RIDDLE REGARDING A PSYCH CONSULT FOR THIS PATIENT. ACCORDING TO DR. RIDDLE, PT COMPLETELY REFUSED THE PSYCH CONSULT. NO FURTHER ACTION IS NEEDED REGARDING THIS ISSUE.
--- NOTE | 2018-08-13 15:03 | NUR ---
PT REFUSED SHOWER TODAY. HE BECAME IRRITABLE WHEN ASKED TO TRY TO HAVE A BOWEL MOVEMENT BEFORE HIS SHOWER. WAS PLANNING ON CHANGING THE DRESSING ON HIS RIGHT LEG AFTER HIS SHOWER. WILL TRY TO CHANGE IT LATER.
--- NOTE | 2018-08-13 17:34 | NUR ---
THIS PT IS ALERT BUT NOT ORIENTED. HE IS DELUSIONAL, CONFUSED AND CAN BECOME IRRITATTED. THE SORE ON HIS BUTTOCKS IS DRY AND PEELING. HE REFUSED NYSTATIN CREAM. DR. CONTI ORDERED NYSTATIN POWDER TO TRY. PT SAYS SHOWERS MAKE HIS BUTTOCKS FEEL BETTER, SO HE MIGHT AGREE TO A SHOWER. HE REFUSED SHOWER ASSISTANCE TWICE TODAY BUT ENDED UP SHOWERING HIMSELF AFTERT HE HAD AN INCONTINENT BOWEL MOVEMENT IN BED. TODAY HE LAID IN BED ALL DAY. HE LIFTS THE BED TO 90 DEGREES FOR MEALS. HE REFUSES SOME MEDICATIONS. WILL CONTINUE TO MONITOR.
--- NOTE | 2018-08-14 04:49 | NUR ---
SHIFT SUMMARY PT AWAKE ON/OFF T/O NIGHT. AT BEGINNING OF SHIFT PT WAS VERY IRRITABLE & YELLED @ROLL GRINDER TO "GET THE FK OUT" OF HIS ROOM & REFUSED VITALS. AN HOUR LATER PT WAS VERY COOPERATIVE W/CARE, OKAYED VITALS & USED HUMOR TO ANSWER MOST QUESTIONS. STATES, "IBETH IS ALIVE & LIVES ON MY PROPERTY" ALONG W/MANY OTHER GRANDIOSE STATEMENTS. DENIES SOB OR N/V. REPORTS 5/10 PAIN IN GROIN/BUTTOCKS BUT REFUSES MEDICATION OR NYSTATIN TO BE APPLIED. OKAYED CLEANING OF REDDENED AREA OF GROIN/BUTTOCKS. PT REFUSED EVENING LACTOLOSE. RLE DRESSING IS C/D/I & WAS CHANGED 08/13/18 PER DAY SHIFT RN, PT DENIES ANY DISCOMFORT W/RLE @THIS TIME. CALL LIGHT IS IN REACH & I WCTM PT UNTIL DAY SHIFT RN ASSUMES CARE.
--- NOTE | 2018-08-14 15:37 | NUR ---
PT REFUSING CREAMS OR SHOWER FOR HILARIO AREA REDDNESS AND EXCORIATION. TALKED WITH PATIENT ABOUT IMPORTANCE OF CLEANING THE AREA PT AGAIN REFUSED. REPORTED TO DR. OCNTI.
--- NOTE | 2018-08-14 18:36 | NUR ---
SHIFT SUMMARY REDRESSSED WOUND TO RIGHT HAND PURULENT YELLOW EXUDATE NOTED ON GAUZE. PAIN, REDDNESS AND WARMTH TO SITE. DECREASED APPETITE. FEVER THIS AFTERNOON. OOB TO BATHROOM STANDBY ASSIST. CONTINENT. SPOUSE AND DAUGHTER TO VISIT. PLEASANT AND CALM THROUGHOUT DAY. C/O PAIN TO LEFT ARM RELIEVED BY ORDERED PAIN MEDICATIONS WELL.
--- NOTE | 2018-08-14 18:47 | NUR ---
SHIFT SUMMARY HX SCHITZOPHRENIA. STANDBY ASSIST. REFUSING LACTULOSE, SHOWER, PERICARE OR CREAMS. REFUSING SCD'S, NICOTINE PATCHES, LOVENOX. EATING AND DRINKING WELL. RLE WOUND AND CELLULITIS IMPROVING. WOUND REDRESSED WITH NONADHERENT DRSG AND GAUZE TODAY. DELUSIONAL BUT QUITE CALM WITHOUT THE USE OF PROFANITY TODAY.
--- NOTE | 2018-08-15 05:18 | NUR ---
SHIFT SUMMARY PT REFUSED TO TAKE ALL MEDS. WAS DRESSED IN HIS STREET CLOTHES. WANTED TO GO OUT TO SMOKE AND WANTED HIS CIGGARETTES AND CADD MANAGER. HAT MODEL ACCOMPANIED HIM TO GO OUT TO SMOKE AND BACK. HE SLEPT ON AND OFF T/O NIGHT.
--- NOTE | 2018-08-15 17:17 | NUR ---
PT AOX3 WITH FLIGHTS OF FANCY. PT HAS BEEN SOME WHAT COOPERATIVE AND DID TAKE MOST OF HIS MORNING MEDICATIONS. PT HAS BEEN WALKING OUT TO SMOKE INDEPENDENTLY. WILL CONTINUE TO MONITOR.
--- NOTE | 2018-08-16 05:03 | NUR ---
SHIFT SUMMARY PT CALM COOPERATIVE. TOOK HIS ABX PO PILL BUT REFUSED LACTULOSE AND NYSTATIN POWDER. WENT OUTSIDE TO SMOKE INDEPENDENTLY. SLEPT ON AND OFF T/O NIGHT
--- NOTE | 2018-08-16 15:32 | NUR ---
SUMMARY TRANSFERRED TO ROOM 347 AT 1400. PT HAD BEEN INDEPENDENT IN ROOM, GOT DRESSED AT 1000 AND STATED HE WAS GOING TO LEAVE AMA TO 'GO TO [facility] OR [facility]'. VERY DELUSIONAL, UNABLE TO REASON WITH HIM. STATES HE WILL CALL THE . GRAVEL WHEELER AND SECURITY AT BEDSIDE AND EXPLAINED THAT HE IS NOW ON A HOSPITAL HOLD. PT REFUSED TO SIGN PAPERWORK. SITTER NOW AT BEDSIDE. NOT ACTIVELY TRYING TO GET PAST SITTER. REFUSING TO ALLOW MEDICATION OR ASSESSMENT OF HILARIO AREA. RLE DRESSING C/D/I, EVIDENTLY NIGHT NURSE CHANGED IT. SOME LEG PAIN, TYLENOL WORKED WELL FOR THIS. TOOK ALL MEDS EXCEPT LOVENOX REPORT GIVEN TO RERE AT 1400
--- NOTE | 2018-08-16 18:26 | NUR ---
SHIFT SUMMARY- RECIEVED REPORT FROM RICK SCHWARTZ WHEN PT TRANSFERED TO SPECIAL CARE UNIT. PT PLACED ON A 2MD HOLD TODAY. PT IS VERY ANGRY ABOUT THIS. PT DISLIKES ANY MALES. HE BECAME AGRESSIVE WHEN HE WAS UNABLE TO GO SMOKE, WAS NOT ANGRY AT FEMALE STAFF WHO TOLD HIM HE BECAME ANGRY AT THE EXPERIMENTAL ASSEMBLER WORKING NEARBY. PT WAS REDIRECTED BUT THIS WAS DIFFICULT. AFTER THAT HE WAS RESISTIVE TO CARE AND REFUSED MEDICATION, HE WOULD NOT EVEN LET STAFF SCAN HIS WRIST BAND. PT IS DRESSED IN STREET CLOTHES, AND WONT ALLOW STAFF TO HELP WITH ANY NEEDS.
--- NOTE | 2018-08-17 05:10 | NUR ---
Rn summary: Patient was very happy and joking at the beginning of shift. Pt did take antibiotic but refused other meds. Pt stated when zyprexa was discussed," I know what that med is for, schizophrenia". He refused it. Pt did allow assessment and vital signs. He has been appropriate with cares but we have not pushed things. Pt did rest in bed for 2 hours then up in the chair again. Pt remains in 2 MD hold. Sitter here for 1:1.
--- NOTE | 2018-08-17 15:36 | NUR ---
PT HAS REFUSED ALL CARE AND MEDICATIONS SO FAR TODAY. WILL ATTEMPT THROUGHOUT THE DAY.
--- NOTE | 2018-08-17 19:39 | NUR ---
PT WAS REFUSING ALL CARE AND MEDICATIONS THIS MORNING. WITH MANY ATTEMPTS, NURSE WAS ABLE TO CHANGE DRESSING ON R LEG, GIVE ANTIBIOTIC AND DO A SHORT ASSESSMENT. LATER TODAY PT BECAME VERBALLY AGGRESIVE AND DEMANDS TO LEAVE THE HOSPITAL. SITTER AND [address]. PT TRULY DOES NOT LIKE FOR ANYONE TO CHECK ON HIM IN THE BATHROOM, WILL IMMEDIATLY GET DEFENSIVE. PT HAS GRANDIOSE THOUGHT PROCESS. NO C/O PAIN
--- NOTE | 2018-08-18 06:07 | NUR ---
SHIFT SUMMARY PT IS A 68 Y/O MALE, ADMITTED FOR RLE CELLULITIS. HE HAS A HX OF SCHIZOPHRENIA, WITH AUDIO AND VISUAL HALLUCINATIONS WELL GRANDIOSE DELUSIONS. HE WAS VERY AGITATED AND ANGRY FROM THE BEGINNING OF THE SHIFT, AND REFUSED ALL CARE DURING THE NIGHT INCLUDING VITALS AND MEDS. THE PT WOULD SLEEP FOR AN HOUR OR TWO AT A TIME, AND THEN WANDER HIS ROOM BEFORE GOING BACK TO BED. HE ALSO TOOK A SHOWER DURING THE NIGHT, AND WOULD NOT LET THIS RN ASSESS/REDRESS HIS LEG AFTER HIS SHOWER. PT DID NOT REPORT ANY PAIN. NO OTHER ACUTE CHANGES IN PT CONDITION NOTED. WILL CONTINUE TO MONITOR AND TREAT PER EMAR.
--- NOTE | 2018-08-18 15:32 | NUR ---
PT IS STILL REFUSING ALL CARE AND TREATMENT. PT VERY ANGRY MULTIPLE TIMES THIS AM. PT DEMANDS TO LEAVE THE HOSPITAL AND GO OUT TO SMOKE. [address] DRESSING CHANGED LAST NIGHT. WILL DIANNAM
--- NOTE | 2018-08-19 06:25 | NUR ---
SHIFT SUMMARY PT IS A 68 Y/O MALE, ADMITTED FOR RLE CELLULITIS. HE HAS A HX OF SCHIZOPHRENIA WITH GRANDIOSE DELUSIONS. THE PT IS STILL REFUSING ALL MEDS AND ANY ASSESSMENT BY THE RN, THOUGH HE DID ALLOW MORNING VITALS TO BE TAKEN BY THE PASSENGER TRAIN BRAKER. THE PT ALSO REMOVED THE BANDAGE ON HIS LEG, AND IT WAS OFF FOR AT LEAST 6-7 HOURS BEFORE HE ALLOWED THE RN TO REPLACE IT. VITALS WERE STABLE. PT REMAINED IN HIS ROOM THROUGH THE NIGHT, THOUGH WOULD OCCASIONALLY WALK IN CIRCLES IN HIS ROOM. PT WAS AGITATED THIS AM, TELLING STAFF HE WANTS TO LEAVE AND THAT "I HAVE THE RIGHT TO GO TO ANY DOCTOR AND ANY HOSPITAL THAT I WANT FOR THIS LEG". NO OTHER ACUTE CHANGES IN PT CONDITION NOTED. WILL CONTINUE TO MONITOR AND TREAT PER EMAR.
--- NOTE | 2018-08-19 08:46 | NUR ---
PATIENT REFUSES MEDS AND EVAL. YELLS "GET OUT OF HERE." 1:1 SITTER.
--- NOTE | 2018-08-19 11:12 | NUR ---
PATIENT STAYS IN ROOM. GAIT APPEARS STEADY. DOES NOT LET RN DO ASSESSMENT. REFUSES MEDS. SITTER SITS AT DOOR ENTRANCE. RN UNABLE TO VISUALIZE WOUND ON BACK LEG.
--- NOTE | 2018-08-19 14:09 | NUR ---
CALLED TO VERIFY HE WILL BE SEEING PATIENT TODAY. HAS INFO.
--- NOTE | 2018-08-19 15:15 | NUR ---
ASKED PATIENT FOR METAL UTENSIL FORK. PATIENT UPSET, BUT THEN SAYS TAKE IT.
--- NOTE | 2018-08-19 16:28 | NUR ---
08/19/18 at lunch time pt had silverware and he got a fork and would nt give it back we finally got it away form him
--- NOTE | 2018-08-19 17:55 | NUR ---
PATIENT REFUSES TO SEE . REFUSES MEDS. WOULD NOT LET RN DO ASSESSMENT. AT TIMES STS HE IS "GOD". REFUSED AFTERNOON VS AND STATED HE WAS GOING TO "BOMB THE HOSPITAL HE HAS 100'S OF BOMBS AT HIS PLACE" AND JUST NEEDS TO CALL TO GET THEM HERE. GOOD APPETITE. VERY ANGRY WHEN RN GOES INTO ROOM. STS "I WANT TO LEAVE AND GO TO A DIFFERENT HOSPITAL WHERE I CAN CHOOSE MY DOCTOR." WILL CONTINUE TO MONITOR.
--- NOTE | 2018-08-19 19:46 | NUR ---
1927 PT SITTING UP IN BED, REPORTS PAIN IN RLE OF 6-7/10, WOUND THAT HAS PREVIOUSLY HAD I&D, PT REFUSING CARE AND MEDS. DENIES ANY OTHER DISCOMFORT. REQUESTING A PEPSI. ALLOWED PHYSICAL ASSESSMENT. PT CONVEYING HIS ANGER REGARDING NOT BEING ALLOWED TO LEAVE, MAKING STATEMENTS OF HX OF BEING IN AND USING BOMBS AGAINST PEOPLE FOR NOT ALLOWING HIM TO LEAVE AND MAKE HIS OWN DECISIONS. WILL CONT. TO MONITOR. SITTER IN ROOM. CALL LIGHT IN REACH.
--- NOTE | 2018-08-19 23:55 | NUR ---
GAVE SITTER HER LUNCH BREAK, PT SITTING IN BEDSIDE CHAIR. NO APPARENT SIGNS OF DISTRESS.
--- NOTE | 2018-08-20 01:38 | NUR ---
PT USED THE BATHROOM INDEPENDANTLY AND IS NOW SITTING IN CHAIR AT BEDSIDE ASKING FOR A PEPSI. WILL GET PEPSI FOR PT. NO APPARENT SIGNS OF DISTRESS. CALL LIGHT IS IN REACH. SITTER IS IN ROOM.
--- NOTE | 2018-08-20 01:43 | NUR ---
08/19/18 2200 PT LYING IN BED, AWAKE, WATCHING TV. NO APPARENT SIGNS OF DISTRESS. CALL LIGHT IS IN REACH. SITTER IS IN ROOM.
--- NOTE | 2018-08-20 04:26 | NUR ---
PT LYING IN BED, EYES CLOSED, APPEARS TO BE RESTING. BREATHING IS EVEN, UNLABORED. NO APPARENT SIGNS OF DISTRESS. CALL LIGHT IS IN REACH. SITTER IS IN ROOM.
--- NOTE | 2018-08-20 04:27 | NUR ---
PT IS ALERT, ORIENTED TO SELF ONLY. PT HAS GRANDIOS AND PARANOID DELUSIONS. HX OF SCHIZOPHRENIA. PT REPORTED PAIN IN THE L LE BUT DECLINED MEDICATIONS. PT REFUSED CARE MOST OF THE TIME BUT DID ALLOW ME TO ASSESS HIM. PT REFUSED MEDICATIONS AT TIMES BUT I WAS ABLE TO HIDE SOME IN HIS FOOD. HE GETS VERY UPSET OVER NOT BEING ABLE TO LEAVE AND NOT BEING ABLE TO MAKE HIS OWN DECISIONS AND MAKES A LOT OF THREATS THAT ARE VIOLENT REGARDING THIS, SUCH HE IS GOIG TO BE BRINGING "BOMBS" HERE. PT DOES NOT WANT ANY MALE CAREGIVERS, HE DOES NOT DO WELL WITH THEM AT ALL, HAS A PARANOIA REGARDING MALES.
--- NOTE | 2018-08-20 05:54 | NUR ---
PT LYING IN BED, EYES CLOSED, APPEARS TO BE RESTING. BREATHING IS EVEN, UNLABORED. NO APPARENT SIGNS OF DISTRESS. CALL LIGHT IS IN REACH. SITTER IS IN ROOM. NO OTHER CHANGES THIS SHIFT.
--- NOTE | 2018-08-20 08:30 | NUR ---
PATIENT NO LONGER COOPERATIVE. YELLING AT STAFF. UPSET. WILL NOT LISTEN TO STAF. STS WANTS TO LEAVE. YELLING OBSENITIES.
--- NOTE | 2018-08-20 11:09 | NUR ---
PATIENT TALKS ABOUT IF HE DOES NOT GET HIS BELONGINGS BACK IT "IS A CLASS B FELONY". WHEN ASKED IF HE WAS A POLICE STS "IM OF THE HIGHEST ORDER. VIKY WAS MY MELE, IM GOD." SOMEWHAT COOPERATIVE AT THIS TIME.
--- NOTE | 2018-08-20 18:33 | NUR ---
PATIENT WAS PLEASANT AND COOPERATIVE EARLY THIS MORNING FOR ABOUT 1/2 HOUR. UPSET ABOUT BEING HERE. STILL MAINTAINS HE IS "GOD." VIDEO CAMERA ON. WAS IN TO SEE. ALLOWED VITAL SIGNS TO BE TAKEN. WAITING FOR PLACEMENT. WILL CONTINUE TO MONITOR.
--- NOTE | 2018-08-21 02:07 | NUR ---
MONITOR REPORTED PT HAD A PEN AND A SATELLITE INSTALLATION TECHNICIAN, ASKED PT FOR SATELLITE INSTALLATION TECHNICIAN SITING FIRE DANGER, REFUSEDS TOLD NURSE TO "F YOURSELF" I AM NOT GIVING YOU THE SATELLITE INSTALLATION TECHNICIAN I JUST USED IT TO GET MY PEN TO WORK, CALLED FLOOR COORDINATOR SHE TRIED TO REASON WITH PT SINCE HE RESPONDS MORE POSITIVELY TO FEMALES, SHE ALSO WAS UNABLE TO CONVINCE PT TO RELENQUISH SATELLITE INSTALLATION TECHNICIAN, INFORMED HIM THAT HE NEEDED TO NOT USE IT IN THE HOSPITAL FOR SAFTY REASONS, SUGGESTED THAT SECURITY BE CALLED IF SATELLITE INSTALLATION TECHNICIAN CONTINUED TO BE USED
--- NOTE | 2018-08-21 07:02 | NUR ---
states that he is not happy to be here, [age]+o, able to self transfer, makes poor choices, refuses to follow medical advice or take medication, responds better to females than to males care provided as prescribed, call light in reach, camera observation, walking rounds completed with day staff
--- NOTE | 2018-08-21 11:47 | NUR ---
PATIENT WAS OFFERED A SHOWER AND HE DECLINED. I OFFERED SEVERAL TIMES AND HE DECLINED.
[2018-08-21] MEDS ORDERED: OLAN10A MM (11:55)
--- NOTE | 2018-08-21 13:25 | NUR ---
PT DISCHARGED PT PT VERBALIZED UNDERSTANDING OF THE DC INSTRUCTIONS, WOUND CARE, FOLLOW UP APPOINTMENTS, AND PERSCRIPTION FAXED TO [facility], HIS CAUL PULLER PROVIDED A TAXI RIDE FOR HIM TO THE [facility], THE PTS WOUND DRESSING WAS CHANGED PRIOR TO DISCHARGE, THE PT APPEARED TO BE BREATHING EASILY ON RA, PT WAS TRANSFERED VIA WHEELCHAIR
== END 2018-08-21 13:07 | disposition home or self-care (01) | DRG 602 ==
LOC: ER 20:45 → MEDS 07-31 00:02 → ENPENDDIS 08-21 11:56 → MEDS 08-21 13:07
PROVIDERS: Family Medicine; Internal Medicine; Nurse Practitioner Acute Care; Physician Assistant; ADMIT Internal Medicine
PROC: 0JDP3ZZ Extraction of Left Lower Leg Subcutaneous Tissue and Fascia, Percutaneous Approach (ICD-10-PCS; principal; 2018-08-01)
DX: L02.416 Cutaneous abscess of left lower limb (principal); G92 Toxic encephalopathy; F10.231 Alcohol dependence with withdrawal delirium; E72.20 Disorder of urea cycle metabolism, unspecified; F20.89 Other schizophrenia; L03.115 Cellulitis of right lower limb; Z59.0 Homelessness; F17.210 Nicotine dependence, cigarettes, uncomplicated; B19.20 Unspecified viral hepatitis C without hepatic coma; K70.30 Alcoholic cirrhosis of liver without ascites; F10.20 Alcohol dependence, uncomplicated; E87.6 Hypokalemia; Z91.14 Patient's other noncompliance with medication regimen; B95.61 Methicillin susceptible Staphylococcus aureus infection as the cause of diseases classified elsewhere; K72.90 Hepatic failure, unspecified without coma; B37.2 Candidiasis of skin and nail; F01.50 Vascular dementia, unspecified severity, without behavioral disturbance, psychotic disturbance, mood disturbance, and anxiety
CPT/HCPCS: 36415; 73701; 80048; 80053; 80069; 80076; 80202; 81001; 82140; 83605; 83735; 85025; 85027; 85610; 85651; 86140; 86141; 87040; 87070; 87075; 87077; 87147; 87186; 87205; 96374-59; 99284-25; J0696; J1650; J2543; J3370; J3480; J7050; Q9967

== ENCOUNTER 2019-05-13 09:14 | Emergency (ER) | payer MEDICARE ==
[~2019-05-13] VITALS: Ht 185.4 cm; Wt 99.8 kg
[~2019-05-13 09:14] MED LIST changes: +OLAN10A MM
[2019-05-13 09:57] LABS: Alanine Aminotransfer (ALT/SGP 80 U/L (12-78); Albumin, Blood 2.9 g/dL (3.4-5.0); Albumin/Globulin Ratio 0.7 (0.8-1.8); Alk Phos 126 U/L (50-136); Anion Gap 7 mmol/L (6-16); Aspartate Aminotrans (AST/SGOT 103 U/L (12-37); Bilirubin, Total 3.3 mg/dL (0.1-1.0); Blood Urea Nitrogen 7 mg/dL (8-24); Bun/Creatinine Ratio 10.3 (12.0-20.0); CO2, Blood 26 mmol/L (21-32); Calcium, Blood 8.4 mg/dL (8.5-10.1); Chloride, Blood 111 mmol/L (98-108); Creatinine, Blood 0.68 mg/dL (0.60-1.20); Globulin, Blood 4.4 g/dL (2.2-4.0); Glomerular Filtration Rate >60 (60-); Glucose, Blood 119 mg/dL (70-99); Potassium, Blood 3.8 mmol/L (3.5-5.5); Sodium, Blood 144 mmol/L (136-145); Total Protein, Blood 7.3 g/dL (6.4-8.2)
[2019-05-13 10:41] LABS: International Normalized Ratio 1.26; Prothrombin Time Results 13.1 Sec (9.7-11.5)
[2019-05-13] MEDS ORDERED: Norco 5-325 Ta1 EACH PO (10:58)
--- NOTE | 2019-05-13 11:31 | NUR ---
Patient is lying in bed and struggles to open his eyes and to speak. Patient tells me that he is holding up "alright" and I ask patient if I could pray for him and he nods his head affirmingly. I gladly provide prayer. Patient voices appreciation. I will continue to remain available to patient and family.
== END 2019-05-13 16:29 | disposition home or self-care (01) ==
LOC: ER 09:14
PROVIDERS: Physician Assistant
DX: S02.32XA Fracture of orbital floor, left side, initial encounter for closed fracture (principal); S02.2XXA Fracture of nasal bones, initial encounter for closed fracture; H11.33 Conjunctival hemorrhage, bilateral; F17.210 Nicotine dependence, cigarettes, uncomplicated; Z59.0 Homelessness; Y04.2XXA Assault by strike against or bumped into by another person, initial encounter
CPT/HCPCS: 12011; 36415; 70450; 70486; 71046; 73502; 80053; 85610; 90471; 90714; 96374-59; 96375-59; 99285-25; J2405; J3010

== ENCOUNTER 2019-06-10 00:12 | Inpatient (IN) | payer MEDICARE ==
[~2019-06-10] VITALS: Ht 180.3 cm; Wt 104.0 kg
[~2019-06-10 00:12] MED LIST changes: +Norco 5-325 Ta1 EACH PO; -OLAN10A MM; +OLAN10A PO
[2019-06-10 01:00] LABS: BASOPHILS ABSOLUTE AUTO 0.04 K/mm3 (0.00-0.23); BASOPHILS PERCENT AUTO 0 % (0-2); EOSINOPHILS ABSOLUTE AUTO 0.01 K/mm3 (0.00-0.68); EOSINOPHILS PERCENT AUTO 0 % (0-6); Hematocrit 39.6 % (37.0-53.0); Hemoglobin 13.3 g/dL (13.5-17.5); IMMATURE GRAN PERCENT AUTO 1 % (0-1); LYMPHOCYTES ABSOLUTE AUTO 0.32 K/mm3 (0.84-5.20); LYMPHOCYTES PERCENT AUTO 2 % (21-46); MONOCYTES ABSOLUTE AUTO 1.12 K/mm3 (0.16-1.47); MONOCYTES PERCENT AUTO 8 % (4-13); Mean Corpuscular HGB Conc 33.6 g/dL (31.5-36.5); Mean Corpuscular Volume 98 fL (80-100); Mean Platelet Volume 11.5 fL (9.1-12.4); NEUTROPHILS ABSOLUTE AUTO 13.01 K/mm3 (1.96-9.15); NEUTROPHILS PERCENT AUTO 89 % (41-73); Platelet Count 76 K/mm3 (150-400); RDW Coefficient Variation 13.4 % (11.7-14.2); RDW Standard Deviation 48.9 fL (35.1-46.3); Red Blood Cell Count 4.03 M/mm3 (4.30-5.90); White Blood Cell Count 14.61 K/mm3 (4.00-11.30)
[2019-06-10 01:01] LABS: IMMATURE GRAN ABSOLUTE AUTO 0.11 K/mm3 (0.00-0.10)
[2019-06-10 01:14] LABS: International Normalized Ratio 1.19; Prothrombin Time Results 12.4 Sec (9.7-11.5)
[2019-06-10 01:21] LABS: Alanine Aminotransfer (ALT/SGP 49 U/L (12-78); Albumin, Blood 2.9 g/dL (3.4-5.0); Albumin/Globulin Ratio 0.7 (0.8-1.8); Alk Phos 127 U/L (50-136); Anion Gap 8 mmol/L (6-16); Aspartate Aminotrans (AST/SGOT 74 U/L (12-37); Bilirubin, Total 2.3 mg/dL (0.1-1.0); Blood Urea Nitrogen 10 mg/dL (8-24); Bun/Creatinine Ratio 12.2 (12.0-20.0); CO2, Blood 23 mmol/L (21-32); CPK Creatine Kinase 669 U/L (39-308); Calcium, Blood 8.5 mg/dL (8.5-10.1); Chloride, Blood 111 mmol/L (98-108); Creatinine, Blood 0.82 mg/dL (0.60-1.20); Ethanol (Alcohol), Blood, Med <3 mg/dL; Globulin, Blood 4.1 g/dL (2.2-4.0); Glomerular Filtration Rate >60 (60-); Glucose, Blood 111 mg/dL (70-99); Potassium, Blood 3.2 mmol/L (3.5-5.5); Sodium, Blood 142 mmol/L (136-145); Troponin I 0.049 ng/mL (0.000-0.040)
[2019-06-10 01:23] LABS: Acetaminophen, Random <2.0 ug/mL (10.0-30.0); Salicylate <1.7 mg/dL (2.8-20.0)
[2019-06-10 01:37] LABS: Creatine Kinase MB 2.9 ng/mL (0.0-3.6); Creatine Kinase MB Index 0.4 (0.0-4.0)
[2019-06-10 02:56] LABS: Source, Urine Clean Catch
[2019-06-10 03:02] LABS: Bilirubin, Urine Neg (Neg); Blood, Urine 1+ (Neg); Glucose Qualitative, Urine Neg (Neg); Ketones, Urine Neg (Neg); Leukocyte Esterase, Urine Neg (Neg); Nitrite, Urine Neg (Neg); Protein, Urine Neg (Neg); Urobilinogen, Urine 1+ (Normal)
[2019-06-10 03:41] LABS: Appearance, Urine Hazy (Clear); Color, Urine Yellow (P-Yellow)
[2019-06-10 03:42] LABS: Amorphous Mod (0-Heavy); Bacteria Few /hpf; Mucus Light (0-Heavy); Red Blood Cells, Urine 0-2 /hpf (0-2); Squamous Epithelial Cells Many /hpf (Few); White Blood Cells, Urine Not Seen /hpf (0-5)
--- NOTE | 2019-06-10 06:07 | NUR ---
PT FROM ED WITH DX OF SEPSIS AND R HAND LAC. PT SLOW TO RESPOND, SLURRED SPEECH. PT ABLE TO WAKE WITH VERBAL STIMULI AND ANSWER QUESTIONS. FOLLOWS COMMANDS. PT IS FEBRILE WITH TEMP OF 101.2. LUNG SOUNDS CLEAR, SPO2 >90% ON 2L NC. PT IN NSR, SBP IN THE 120S, HR IN THE 80S. PT WILL REQUEST TO USE URINAL HOWEVER PT IS INCONTINENT OF URINE AND BOWELS. R HAND LAC-PALM IS RED, SWOLLEN, WARM TO TOUCH. WOUND CLEANED AND LEFT OPEN TO AIR. 18 G LAC INFUSING WITH NS AT 75 ML/HR AND K+. PT IS LOW RISK SI SO PLACED ON CAMERA FOR OBS. BED IN LOWEST POSITION. WILL CONTINUE TO MONITOR
--- NOTE | 2019-06-10 07:45 | NUR ---
CT COMPLETE PT TO CT WITH MYKEL, PCT AND OBSTETRICAL NURSE.
--- NOTE | 2019-06-10 07:58 | NUR ---
PROVIDER VISIT DR. QUINONEZ TO BEDSIDE FOR ASSESSMENT. NO NEW ORDERS.
--- NOTE | 2019-06-10 08:30 | NUR ---
CT RESULTS PER DR. QUINONEZ, RADIOLOGY CALLED HIM TO LET HIM KNOW THAT PT HAS A SMALL BLEED IN BRAIN. DISCUSSED CURRENT ORDER FOR LOVENOX. DISCONTINUED. OTHERWISE, CONTINUE TO MONITOR.
--- NOTE | 2019-06-10 08:45 | NUR ---
INITIAL ASSESSMENT CARE ASSUMED AFTER BEDSIDE REPORT FROM RICK NUNN AT 0700. REVEIWED RIGHT HAND CELLULITIS TOGETHER TO ESTABLISH BASELINE. RED STREAKS NOTED GOING UP INNER ARM. PT DROWSY, BUT AROUSABLE WITH MULTIPLE VERBAL ATTEMPTS. ATTEMPT TO DO FULL NEURO ASSESSMENT AND PT IS VERY SLEEPY AND MUMBLES VARIOUS WORDS COMMUNICATING THAT HE HAS ALREADY ANSWERED THESE AND WILL NOT FURTHER ANSWER THEM. ATTEMPTED TO EDUCATE PATIENT ABOUT IMPORTANCE OF NEURO ASSESSMENT. PT SAYS "YOU'RE FIRED, GET OUT!" BETWEEN PROFANITIES. PT REFUSES TO TAKE WATER OR LACTULOSE. SECOND NURSE AGREES TO ATTEMPT AND IS SUCCESSFUL AFTER PT HAS CALMED DOWN FOR A FEW MINUTES. PT QUICKLY FALLS ASLEEP WHEN STAFF NOT IN ROOM. THOUGH PT MUMBLES, HE DOES SPEAK CLEAR WORDS WHEN ANGRY AND HE DOES MAKE SENSE. PUPILS EQUAL. PT FOLLOWING SIMPLE COMMANDS. VITALS STABLE.
[2019-06-10 09:11] LABS: Hematocrit 37.4 % (37.0-53.0); Hemoglobin 12.8 g/dL (13.5-17.5); Mean Corpuscular HGB Conc 34.2 g/dL (31.5-36.5); Mean Corpuscular Volume 99 fL (80-100); Mean Platelet Volume 12.2 fL (9.1-12.4); Platelet Count 63 K/mm3 (150-400); RDW Coefficient Variation 13.7 % (11.7-14.2); RDW Standard Deviation 49.4 fL (35.1-46.3); Red Blood Cell Count 3.77 M/mm3 (4.30-5.90); White Blood Cell Count 21.26 K/mm3 (4.00-11.30)
--- NOTE | 2019-06-10 09:26 | NUR ---
REMOTE MONITORING CONFIRMED WITH MALIKA IN REMOTE MONITORING THAT PT IS BEING MONITORED. PROCESS INITIATED ON PREVIOUS SHIFT.
[2019-06-10 09:28] LABS: Alanine Aminotransfer (ALT/SGP 44 U/L (12-78); Albumin, Blood 2.4 g/dL (3.4-5.0); Albumin/Globulin Ratio 0.6 (0.8-1.8); Alk Phos 94 U/L (50-136); Anion Gap 6 mmol/L (6-16); Aspartate Aminotrans (AST/SGOT 69 U/L (12-37); Bilirubin, Total 2.7 mg/dL (0.1-1.0); Blood Urea Nitrogen 14 mg/dL (8-24); Bun/Creatinine Ratio 15.8 (12.0-20.0); CO2, Blood 23 mmol/L (21-32); Calcium, Blood 7.8 mg/dL (8.5-10.1); Chloride, Blood 115 mmol/L (98-108); Creatinine, Blood 0.89 mg/dL (0.60-1.20); Globulin, Blood 3.7 g/dL (2.2-4.0); Glomerular Filtration Rate >60 (60-); Glucose, Blood 95 mg/dL (70-99); Potassium, Blood 3.3 mmol/L (3.5-5.5); Sodium, Blood 144 mmol/L (136-145); Total Protein, Blood 6.1 g/dL (6.4-8.2); Troponin I 0.076 ng/mL (0.000-0.040)
[2019-06-10 09:43] LABS: Creatine Kinase MB 2.1 ng/mL (0.0-3.6); Creatine Kinase MB Index 0.3 (0.0-4.0)
--- NOTE | 2019-06-10 12:57 | NUR ---
Safety Plan interview attempted. Night nurse had requested as she understood patient had been assessed in ED prior to admit to say he had SI. When asked Tyshawn johnson, he said"those fucking idiots, I dont want to kill myself". He spoke loudly and clearly. His ICU nurse informed of his statement. A blank Safety Plan left with hs paper chart in case it was confirmed he was in needd of a Plan. Sheryl Carlos M.Ed., RUST-C Director [facility]
--- NOTE | 2019-06-10 16:00 | NUR ---
REASSESSMENTS/UPDATES SINCE PREVIOUS NOTE, PT HAS BECOME MORE AND MORE ALERT AND RESPONSIVE. PT CONTINIUES TO BE ANGRY, YELLING VARIOUS PROFANITIES AT STAFF WHEN ASKED TO DO THINGS HE DOESN'T WANT TO DO, BUT HE IS REDIRECTABLE. PT HAS SLEPT FOR THE MAJORITY OF DAY WHEN STAFF NOT IN ROOM, BUT AROUSES EASILY. PUPIL ASSESSMENTS UNCHANGED. PT CALLING APPRPRIATELY FOR NEEDS TO USE URINAL OR BEDPAN. PT MAKES SENSE WHEN MAKING REQUESTS, AND DOES FOLLOW DIRECTIONS. CONTINUES TO REFUSE TO RESPOND TO FULL NEURO ASSESSMENT QUESTIONS AND QUICKLY BECOMES AGITATED. ABLE TO ASSIST WITH REPOSITIONIONG. PT ARNOLD STAKEN LACTOLOSE AND HAD A LARGE LIQUID BOWEL MOVEMENT. RIGHT HAND CELLULITIS ASSESSMENT UNCHANGED. PT DOES HAVE POSITIVE BLOOD CULTURES, MD AWARE. VITALS STABLE.
--- NOTE | 2019-06-10 16:45 | NUR ---
SUICIDE PRECAUTIONS SPOKE WITH DR. QUINONEZ TO CLARIFY SUICIDE PRECAUTION ORDER WITH NO PSYCH EVALUATION AND CURRENT SUICIDAL IDEATION FINDINGS. NEW ORDER FOR PSYCH EVALUATION TOMORROW.
[2019-06-10 17:21] LABS: Troponin I 0.057 ng/mL (0.000-0.040)
[2019-06-10 17:34] LABS: Creatine Kinase MB 1.7 ng/mL (0.0-3.6); Creatine Kinase MB Index 0.3 (0.0-4.0)
--- NOTE | 2019-06-10 17:52 | NUR ---
REPORT TO TIEN RN IN PCU
--- NOTE | 2019-06-10 18:00 | NUR ---
CIWA ASSESSMENTS THROUGHOUT SHIFT, PT HAS BEEN SHAKEY AND AGITATED, BUT OTHERWISE NEGATIVE CIWA.
--- NOTE | 2019-06-10 18:08 | NUR ---
TRANSFER PT UPDATED ON PLAN AND AGREEABLE. VITALS STABLE. TRANSFERRED TO PCU 8. PT PLEASANT, MAKING JOKES WITH STAFF ON TRANSFERRING. REVEIWED RIGHT HAND CELLULITIS WHICH HAS BEEN STABLE THROUGHOUT SHIFT WITH RICK CHAUHAN TO ASSUME CARE.
--- NOTE | 2019-06-10 21:30 | NUR ---
TEMPORAL TEMP OF 101.5 NOTED. ICE PACKS PLACED TO NECK. WILL MEDICATED PER EMAR.
--- NOTE | 2019-06-10 21:35 | NUR ---
NURSING HEARD HIM CURSING AND YELLING. WHEN ASKED WHAT HE NEEDED AND WHY HE WAS CURSING, HE STATED THAT HE WANTED HIS BLANKETS ON HIM. NURSING REITERATED THAT HE HAD A FEVER AND THE IT WAS NECESSARY TO KEEP THE BLANKETS OFF. HE BECAME AGGRIVATED AND DEMANDED THAT NURSING LEAVE HIS ROOM. WILL CONTINUE TO MONITOR.
--- NOTE | 2019-06-10 21:43 | NUR ---
PLACED ON BEDPAN.
--- NOTE | 2019-06-10 23:19 | NUR ---
HEARD MOANING, WHEN ASKED WHAT HE NEEDED, HE STATES THAT HE MUST BE DREAMING. REORIENTED AND QUICKLY FALLS ASLEEP. SAFETY MEASURES IN PLACE. WILL CONTINUE TO MONITOR.
--- NOTE | 2019-06-11 03:55 | NUR ---
MEDICATED FOR ELEVATED TEMP OF 101.1 TEMPORAL PER EMAR. WILL CONTINUE TO MONITOR.
--- NOTE | 2019-06-11 04:02 | NUR ---
CONTINUES TO MOAN AND CURSE OUT LOUD WHILE SLEEPING. WOKEN UP TO SEE HOW HE IS DOING. REORIENTED, RESTING WITH EYES CLOSED. SAFETY MEASURES IN PLACE. WILL CONTINUE TO MONITOR.
--- NOTE | 2019-06-11 05:28 | NUR ---
SHIFT SUMMARY PT HAS HAD MULTIPLE LIQUID BENÍTEZ BM'S THIS SHIFT. IS ABLE AT TIMES TO USE THE CALL GRACE APPROPRIATELY, OTHER TIMES HE HAS INCONTINENT EPISODES. EACH TIME HE IS COOPERATIVE WITH POSITION CHANGES IN BED. HAS BEEN BELIGERANT AND DEMANDING AT TIMES, BUT HAS COOPERATED AFTERWARDS. LYING IN SEMI FOWLERS AND REPOSITIONS TO COMFORT. REDNESS, EDEMA, AND HEAT CONTINUE IN RIGHT HAND, RED LINE UP THE ARM HAS FADED THROUGHOUT SHIFT. CIWA HAS BEEN BETWEEN 11 AND 15. ELEVATED TEMP NOTED WELL, HIGHEST BEING 102.5 TEMPORAL. TREATED PER EMAR PRN. SAFETY MEASURES IN PLACE. WILL GIVE HAND OFF TO ONCOMING SHIFT USING SBAR.
[2019-06-11 05:45] LABS: Hemoglobin 12.8 g/dL (13.5-17.5); Mean Corpuscular HGB 33.3 pg (26.0-34.0); Mean Corpuscular HGB Conc 33.7 g/dL (31.5-36.5); Mean Corpuscular Volume 99 fL (80-100); Mean Platelet Volume 12.3 fL (9.1-12.4); Platelet Count 56 K/mm3 (150-400); RDW Coefficient Variation 14.2 % (11.7-14.2); RDW Standard Deviation 51.3 fL (35.1-46.3); Red Blood Cell Count 3.84 M/mm3 (4.30-5.90)
[2019-06-11 05:59] LABS: Anion Gap 9 mmol/L (6-16); Blood Urea Nitrogen 17 mg/dL (8-24); Bun/Creatinine Ratio 15.6 (12.0-20.0); CO2, Blood 19 mmol/L (21-32); Calcium, Blood 7.7 mg/dL (8.5-10.1); Chloride, Blood 115 mmol/L (98-108); Creatinine, Blood 1.09 mg/dL (0.60-1.20); Glomerular Filtration Rate >60 (60-); Glucose, Blood 93 mg/dL (70-99); Potassium, Blood 2.6 mmol/L (3.5-5.5); Sodium, Blood 143 mmol/L (136-145)
--- NOTE | 2019-06-11 07:04 | NUR ---
PT USED CALL GRACE TO CALL FOR BATHROOM ASSISTANCE. WHEN ASKED WHAT HE NEEDED HE ASKED FOR ORAL CARE FOR TONGUE AND TEMP CHECK. TEMPORAL TEMP SHOWED 100.5 AND ORAL ARE WAS PERFORMED. DENIES FURTHER NEEDS AT THIS TIME.. SAFETY MEASURES IN PLACE. WILL CONTINUE TO MONITOR.
--- NOTE | 2019-06-11 08:00 | NUR ---
pt laying in bed with eyes closed, wakes easily, he is oriented to self and place at this time, he is sleepy, not indicating S.I. at all, no signs of ciwa at this time. he is cooperative with care, follows some commands, lungs are clear dim in bases, resp even and unlabored, no cough noted, hrr, tele in place running sr per monitor, see strip, no edema noted, ppp+2, cap refill <3sec, vs stable, afebrile, iv sites are clear and patent, btx4, abd flat soft nontender, is incont of urine and stool, attends in place, skin has a very red swollen right hand with an abrasion, and small wound to the palm side, attemps to assist in turning in bed, otherwise is very weak, osbaldo, call light in reach.
--- NOTE | 2019-06-11 08:45 | NUR ---
Answering service contacted for consultation request from Dr. Otto to Dr. West Dailey at this time.
--- NOTE | 2019-06-11 09:31 | NUR ---
Spoke with Dr. Dailey before pt was taken down for CT scan this morning; He was given Dr. Otto's phone number concerning the consultation. Dr. Otto was notified at this time, per his request upon the pt returning to PCU [address] scan.
--- NOTE | 2019-06-11 13:33 | NUR ---
pt left for surgery via gurney.
[2019-06-11 16:27] LABS: Source, Urine Catheter
[2019-06-11 16:30] LABS: Bilirubin, Urine Neg (Neg); Blood, Urine 2+ (Neg); Glucose Qualitative, Urine Neg (Neg); Ketones, Urine 1+ (Neg); Leukocyte Esterase, Urine 1+ (Neg); Nitrite, Urine Neg (Neg); Protein, Urine Neg (Neg); Specific Gravity, Urine 1.015 (1.003-1.022); Urobilinogen, Urine 2+ (Normal)
[2019-06-11 16:35] LABS: Appearance, Urine Clear (Clear); Color, Urine Yellow (P-Yellow)
[2019-06-11 16:38] LABS: White Blood Cells, Urine 0-2 /hpf (0-5)
[2019-06-11 16:42] LABS: Bacteria Few /hpf; Red Blood Cells, Urine 0-2 /hpf (0-2); Squamous Epithelial Cells Rare /hpf (Few)
--- NOTE | 2019-06-11 17:10 | NUR ---
THIS IS A 69 YR OLD MALE PT WHO WAS ADMITED FOR PACU WHO IS DROWSY AND BUT WILL AROUSE TO VERBAL STIMULATION AND WILL FOLLOW SIMPLE COMMANDS WHEN AWAKE. HIS ATTENDS IS SOILED WITH STOOL OTHERWISE DRY. SANCHEZ CATH WILL BE PLACES WILMA. HE HAS O2 AT 2L AND SAT UPPER 98 RANGE. LUNGS ARE CLEAR AND HE IS PROTECTING HIS AIRWAY. HE IS NOT NAUSEATED. ABD IS SOFT. SKIN IS CLEAR EXCEPT R HAND WHICH IS SWOLLEN AND MOD RED DOWN INTO R FA AREA. THE WOUND VAC IS IN INTACT AND TO SX AT 120 MM/HG AND LINES ARE DRY CURRENTLY. HAND IS ELEVATED ABOVE THE HEART REQUESTED.
--- NOTE | 2019-06-11 18:51 | NUR ---
PT R HAND CONT TO BE ELEVATED ABOVE HEAD. VSS AND BP HAS LOWERED NOTED POST SURG. I/O NOTED AND URINE IS ORANGE WITH STRONG ODOR. PT TAKING PO WELL BUT HAVE NOT FEED YET DUE TO SOMULANCE. NSR AND PT HAS GOOD MOVEMENT IN R HAND AND HAS NOT C/O OR HAS ASSESMENT REVEALED NEED FOR PAIN MEDS AT THIS TIME. THERE IS YET NOT SX DRAINAGE NOTE.
--- NOTE | 2019-06-11 21:30 | NUR ---
PT AWAKE AND CONVERSATIONAL, DENIES N/V, DENIES CP/PRESSURE, DENIES SOB/DYSPNEA, STATES THAT HE WOULD LIKE SOMETHING TO DRINK AND EAT. 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 LUNGS ARE CLEAR THROUGHOUT WITH DIM BASES BILAT, SATS MAINTAINING MID TO UPPER 90S WITH OXYGEN AT 2 L/MIN VIA NC, PT IS SPEAKING IN FULL SENTENCES WITHOUT VISIBLE INCREASED WORK OF BREATHING, RATE WNL. HRR, SINUS ON MONITOR, RATE LOW 60S, PRESSURE MAINTAINING, SKIN IS PWD WITH BRISK CAP REFILL, PULSES ARE STRONG X 4 EXTREMITIES, NO EDEMA IS NOTED AT THIS TIME. ABD DISTENDED AND FIRM, ACTIVE BOWEL TONES X 4. WOUND VAC TO RIGHT HAND I&D SITE, REDNESS CONTINUES, SITE SOFT, NO DRAINAGE IN WOUND VAC OR WOUND VAC TUBING AT THIS TIME. RIGHT HAND REMAINS ELEVATED TO IV POLE WITH STOCKINETTE DRESSING, PT TOLERATING WELL.
[2019-06-12 03:26] LABS: BASOPHILS ABSOLUTE AUTO 0.01 K/mm3 (0.00-0.23); BASOPHILS PERCENT AUTO 0 % (0-2); EOSINOPHILS ABSOLUTE AUTO 0.01 K/mm3 (0.00-0.68); EOSINOPHILS PERCENT AUTO 0 % (0-6); Hematocrit 40.1 % (37.0-53.0); Hemoglobin 13.2 g/dL (13.5-17.5); IMMATURE GRAN ABSOLUTE AUTO 0.05 K/mm3 (0.00-0.10); IMMATURE GRAN PERCENT AUTO 1 % (0-1); LYMPHOCYTES ABSOLUTE AUTO 0.46 K/mm3 (0.84-5.20); LYMPHOCYTES PERCENT AUTO 5 % (21-46); MONOCYTES ABSOLUTE AUTO 0.34 K/mm3 (0.16-1.47); MONOCYTES PERCENT AUTO 4 % (4-13); Mean Corpuscular HGB 33.2 pg (26.0-34.0); Mean Corpuscular HGB Conc 32.9 g/dL (31.5-36.5); Mean Corpuscular Volume 101 fL (80-100); Mean Platelet Volume 12.8 fL (9.1-12.4); NEUTROPHILS ABSOLUTE AUTO 8.22 K/mm3 (1.96-9.15); NEUTROPHILS PERCENT AUTO 90 % (41-73); Platelet Count 68 K/mm3 (150-400); RDW Standard Deviation 52.9 fL (35.1-46.3); Red Blood Cell Count 3.97 M/mm3 (4.30-5.90); White Blood Cell Count 9.09 K/mm3 (4.00-11.30)
[2019-06-12 03:43] LABS: Anion Gap 12 mmol/L (6-16); Blood Urea Nitrogen 17 mg/dL (8-24); Bun/Creatinine Ratio 17.1 (12.0-20.0); CO2, Blood 15 mmol/L (21-32); Calcium, Blood 7.5 mg/dL (8.5-10.1); Chloride, Blood 115 mmol/L (98-108); Glomerular Filtration Rate >60 (60-); Glucose, Blood 243 mg/dL (70-99); Potassium, Blood 3.2 mmol/L (3.5-5.5); Sodium, Blood 142 mmol/L (136-145)
--- NOTE | 2019-06-12 06:31 | NUR ---
PT RESTS QUIETLY THROUGHOUT SHIFT, CIWA REMAINS LESS THAN 12, PAIN WELL CONTROLLED WITH ORDERED POSITIONING. HE HAS BEEN PLEASANT AND COOPERATIVE THROUGHOUT SHIFT, USES CALL LIGHT APPROPRIATELY TO MAKE NEEDS KNOWN. LUNGS REMAIN CLEAR, SATS CONTINUE HIGH 90S WITH OXYGEN TITRATED DOWN TO ROOM AIR, NO INCREASED WORK OF BREATHING HAS BEEN NOTED, OCCASIONAL NONPRODUCTIVE COUGH. REMAINS IN SINUS RHYTHM WITH OCCASIONAL PVCS NOTED, PRESSURE MAINTAINING. ABD REMAINS DISTENDED, PT INCONT OF EXTRA LARGE BM X 1 THIS SHIFT FOLLOWING HS LACTULOSE ADMINISTRATION, DENIES NAUSEA THROUGHOUT SHIFT, TOLERATING REGULAR DIET WELL. SANCHEZ CATH REMAINS IN PLACE DRAINING CLEAR MICHAEL URINE TO GRAVITY, 950 ML THIS SHIFT. WOUND VAC REMAINS IN PLACE TO RIGHT HAND, SCANT AMOUNT OF SEROSANGUINOUS DRAINAGE IS NOTED IN TUBING OF THIS AM, DRESSING REMAINS CDI.
--- NOTE | 2019-06-12 07:30 | NUR ---
START OF SHIFT NOTE: RECEIVED REPORT FROM RICK ROWLEY, ASSUMED CARE, PATIENT IS AWAKE, ALERT AND ORIENTED, SLIGHTLY OFF WITH DAY, BUT ABLE TO ANSWER ALL OTHER QUESTIONS, RIGHT ARM IN STOCKINETTE NETTING AND ELEVATED ON IV POLE TO KEEP WOUND AND RIGHT HAND FROM SWELLING, WOUND VAC ON RIGHT LATERAL THUMB AND DRAINING SMALL AMOUNTS OF SEROSANGUINOUS FLUID, LUNG SOUNDS ARE COARSE THROUGHOUT, SR/SB, BOWEL TONES PRESENT AND HYPOACTIVE, SANCHEZ CATHETER IN PLACE, AFEBRILE, PATIENT REPORTS PAIN ALL OVER, DR. QUINONEZ IN TO SEE PATIENT, NEW ORDERS RECEIVED, PATIENT IS NOW MEDICAL STATUS WITHOUT TELE, CONTINUES ON ZOSYN AND CLEOCIN, WELL RECEIVING POTASSIUM REPLACEMENT FOR K+ OF 3.2, CALL LIGHT IN REACH, WILL CONTINUE TO MONITOR.
--- NOTE | 2019-06-12 07:30 | NUR ---
START OF SHIFT NOTE: RECEIVED REPORT FROM RICK ROWLEY, ASSUMED CARE, PATIENT IS SLEEPING BUT EASILY AROUSEABLE, CONTINUES ON HOSPITAL VENT CONNECTED TO HER TRACH, SETTINGS ARE 16/5/500Vt/FiO2 30 %, SATING AT 96 %, ALERT AND ORIENTED, SR, LUNG SOUNDS DIMINISHED THROUGHOUT, BOWEL TONES HYPOACTIVE, ATTENDS IN PLACE, AT THIS TIME PATIENT IS COMPLIANT AND COOPERATIVE WITH ORAL CARE AND ATTENDS CHANGE, PATIENT ON PRECEDEX AT 0.2 MCG, TOLERATING WELL, CALL LIGHT IN REACH, WILL CONTINUE TO MONITOR.
--- NOTE | 2019-06-12 09:15 | NUR ---
ATTEMPTED TO CALL REPORT TO RICK ARDON, HE WILL CALL BACK AFTER HE ADMINISTERS MEDICATION.
--- NOTE | 2019-06-12 10:05 | NUR ---
CALLED REPORT TO RICK ARDON, ON MEDICAL FLOOR, WILL TRANSFER PATIENT TO ROOM 329 VIA BED.
--- NOTE | 2019-06-12 10:10 | NUR ---
DR. EM IN TO SEE PATIENT, NO NEW ORDERS RECEIVED.
--- NOTE | 2019-06-12 11:36 | NUR ---
PT TRANSFER PT ARRIVED TO THE MEDICAL FLOOR FROM THE ICU VIA STRETCHER A/O X2, PT ORIENTED TO THE ROOM CALL LIGHT, THE PTS RIGHT ARM IS ELEVATED IN A DRESSING TO AN IV POLE, PTS ARM IS FULLY EXTENDED AND PER THE PT UNCOMFORTABLE, PILLOWS WERE PLACE UNDER THE ARM/ELBOW TO TRY AND RELIEVE SOME OF THE STRETCH, PT APPEARS TO BE BREATHING EASILY ON RA, THE PT DOES AT TIMES VERBALIZE GRANDULOSE DELUSIONS ABOUT HIS PAST, CALL LIGHT IN REACH REPORT WAS TAKEN FORM PRECISION LAYOUT [employer]
--- NOTE | 2019-06-12 17:28 | NUR ---
PT IS A/OX2, PLEASANT AND COOPERATIVE, AT TIMES THE PT EXPRESSES GRANDULOSE ELLUSIONS, THE PTS RIGHT HAND HAS BEEN ELEVATED OVER HIS HEAD, T/O THE DAY, THE PT WAS ABLE TO EAT WITH HIS LEFT HAND, HAD GOOPD PO INTAKE, THE PT APPEARS TO BE BREATHING EASILY ON RA, PT DENIED ANY PAIN, CALL LIGHT IN REACH WILL CONTINUE TO MONITOR AND ASSESS FOR CHANGES, A COUPLE OF TIMES TODAY THE PT TOOK DOWN HIS ARM AND REMOVED THE CAST SLEEVE, HOWEVER WAS EASILY REDIRECTED AND COOPERATIVE WITH ALLOWING IT TO BE REPLACED, SANCHEZ CATHETER IN PLACE AND DRAINING
--- NOTE | 2019-06-12 22:35 | NUR ---
POSITIVE BLOOD CULTURE *LATE ENTRY* LAB NOTIFIED ME @2034 THAT PT HAD GRAM + COCCI IN [place]. CALLED PHARMACY TO SEE IF PT WAS COVERED W/ZOSYN & CLEOCIN WHICH HE IS ALREADY RECIEVING, THEY INFORMED ME TO CALL HOSPITALIST. NOTIFIED TAD ARGUELLO @2144 & SHE STATED PT WAS COVERED AT THIS TIME & NO NEW ORDERS GIVEN. WCTM.
--- NOTE | 2019-06-13 05:12 | NUR ---
SHIFT SUMMARY AOX3, UNAWARE YR-KNOWS THE MONTH. FOLLOWS DIRECTIONS. HAS GRANDIOSE DELUSIONS. 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 R HAND ELEVATED IN SLING UP ABOVE HEAD, WOUND VAC IS PATENT RUNNING @120 MMHG CONTINUOUS PRESSURE. REPORTS PAIN IN R HAND & ALLOVER BODY, MEDICATED 2X W/FENTANYL PER ORDERS & DENIES FURTHER DISCOMFORT. REPORTED FEELING NAUSEOUS, MEDICATED 1X W/ZOFRAN & REPORTED RELIEF. HAD LARGE INCONTINENT BM, CHANGED & REPOSITIONED PRN. SANCHEZ IS PATENT & DRAINING. CALL LIGHT IN REACH. WCTM.
[2019-06-13 05:42] LABS: Anion Gap 7 mmol/L (6-16); Blood Urea Nitrogen 16 mg/dL (8-24); Bun/Creatinine Ratio 16.1 (12.0-20.0); CO2, Blood 21 mmol/L (21-32); Calcium, Blood 7.9 mg/dL (8.5-10.1); Chloride, Blood 112 mmol/L (98-108); Creatinine, Blood 0.99 mg/dL (0.60-1.20); Glomerular Filtration Rate >60 (60-); Glucose, Blood 120 mg/dL (70-99); Potassium, Blood 3.7 mmol/L (3.5-5.5); Sodium, Blood 140 mmol/L (136-145)
--- NOTE | 2019-06-13 07:48 | NUR ---
06/13/19 0748 Carla Pozo VERIFICATIONS: EDIT CHART.
--- NOTE | 2019-06-13 10:52 | NUR ---
NURSE CALLED NAVARRO JOHNSON, TO NOTIFY HER PER DR QUINONEZ THAT THIS PATIENT WILL HAVE COMPLICATED NEEDS FOR CARE POST DISCHARGE.
--- NOTE | 2019-06-13 17:16 | NUR ---
SHIFT SUMMARY PT AXO TO SELF, PLACE, YEAR AND FOLLOING DIRECTIONS. WOUND VAC CHANGED THIS SHIFT BY DR. EM, SEE ORDERS FOR FURTHER DRESSING CHANGE. R ARM ELEVATED PER ORDERS. VSS. PT TURNED AND CHANGES Q2 AND PRN. IV PATENT AND INFUSING PER EMAR. THIS NURSE CALLED DR QUINONEZ AT 1720 TO ASK FOR ORDERS FOR PT AND OT. NO ANSWER, WILL TRY AGAIN SOON. BED IN LOW POSITION, CALL LIGHT WITHIN REACH.
--- NOTE | 2019-06-14 06:44 | NUR ---
SHIFT SUMMARY PT'S LS ARE CLEAR/DIMINISHED, BT + X4. PT HAS APPEARED TO BE SLEEPING T/O THE NIGHT. WHEN HE WAKES UP, HE SMILES AT EVERYONE AND DOESN'T SPEAK MUCH. HE HASN'T ADMITTED TO ANY PAIN TONIGHT SO NO PAIN MEDS GIVEN.
[2019-06-14] MEDS ORDERED: Culturelle1 CAP PO (13:30)
[2019-06-14] MEDS ORDERED: Augmentin 875-1 EACH PO (13:31)
[2019-06-14] MEDS ORDERED: Kristalose20 GM PO (13:31)
--- NOTE | 2019-06-14 16:50 | NUR ---
PATIENT STATED HE WANTED TO GO BACK TO [facility]posed Voc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 CALL PLACED TO THE [facility] TO SEE IF PATIENT HAS ANY BENEFITS HE DIDN'T SHOW EVER BEING REGISTERED BUT THEY WERE CHECKING TO SEE IF HE WAS A VET. PATIENT IS WILLING TO REAPPLY BUT WILL NEED HELP AND GUIDENCE ON HOW TO GET THAT ACCOMPLISHED. [facility] BECAUSE HE WAS DRUNK AND UNABLE TO CARE FOR HIMSELF. PATIENT STATED HE HAD NO WAY TO ACTUALLY GET HIS MEDICATIONS EITHER. AT TIME OF POTENTIAL DISCHARGE PATIENT HAD NOT HAD A PT/OT EVAL, HAD HIS SANCHEZ STILL IN PLACE AND HAD NOT BEEN OUT OF BED SINCE HIS ADMISSION. PATIENT REQUEST HELP FROM APS AND DISCHARGE PLANNING.
--- NOTE | 2019-06-14 17:42 | NUR ---
SHIFT SUMMARY PATIENT WAS SUPPOSED TO DISCAHRGE TODAY ALTHOUGH WE HAD NO SAFE DISCHARGE PLAN. PATIENT HAS NOT BEEN OUT OF BED SINCE HE GOT TO THE HOSPITAL. HE REFUSES TO LEAVE AT THIS POINT AND STATES HE WILL NOT BE GETTING HIS MEDICATIONS HE HAS NO RESOURCES. PATIENT STATES HE IS A ALTHOUGH HE HAS NEVER APPLIED FOR BENEFITS. CURRENTLY WE HAVE NO SAFE DISCAHRGE PLAN FOR THE PATIENT AND HE DOES NOT HAVE A PLACE TO GO. HE CANNOT GO [facility]ORDING [facility] FOR AT LEAST ONE WEEK.
--- NOTE | 2019-06-15 04:05 | NUR ---
SHIFT SUMMARY LS CLR AND DIMINISHED, BT+ X4. PT IS PLEASANT AND COOPERATIVE. NO PRN'S GIVEN; NO C/O ANY KIND. USING URINAL INSTRUCTED. NO PROBLEMS NOTED AND HAS APPEARED TO BE SLEEPING T/O THE NIGHT.
--- NOTE | 2019-06-15 17:49 | NUR ---
PT AOX3 CAN BE COOPERATIVE AT OTHER TIMES VERY GRUMPY. PT WAS GOTTEN UP INTO CHAIR. PT IN BED AT THIS TIME EATING HIS DINNER. PT INCONTENENT OF BLADDER. WILL CONTIUE TO MONITOR.
--- NOTE | 2019-06-15 23:33 | NUR ---
PT APPEARS TO BE SOMNOLENT, AND IRRITABLE. WHEN ASKED ABOUT PAIN, PT STATED HE HAS PAIN "EVERYWHERE" AND RATED THE PAIN 8/10. PT OFFERED TYLENOL PER EMAR BUT DECLINED. PT ALSO REFUSED ALL MEDS TONIGHT. PT WAS EXPLAINED WHAT EACH MEDS DOES BUT PT STILL REFUSED AND WAS IRRITATED.
--- NOTE | 2019-06-16 07:24 | NUR ---
DERIVATIVES TRADER SUMMARY PT DID NOT SLEEP AT ALL PER SLD EDUCATIONAL AIDE REPORT. PT HAS PULLED OFF ATTENDS THROUGHOUT THE NIGHT. BED LINENS AND ATTENDS PLACED AFTER INCONTIENCE. NO ACUTE CHANGES.
--- NOTE | 2019-06-16 13:45 | NUR ---
WOUND VAC DRESSING CHANGED TO THE PT'S R HAND, PALM SIDE, WOUND IS APPROX 6 CM LONG AND 3 CM WIDE, BREANN-SHAPED, SCANT AMOUNT OF SEROSANGUINEOUS DRAINANGE, BLACK FOAM CUT TO SIZE AND COVERED WITH TRANSPARENT DRESSING AND VAC, PT MAURICIO WELL
--- NOTE | 2019-06-16 18:20 | NUR ---
SUMMARY PT SITTING UP IN BED EATING DINNER, PT HAS BEEN COOPERATIVE WITH MOST CARE T/O THE DAY, TOLERATED WOUND VAC CHANGE, PLAN TO DC SOON, DISCHARGE PLANNERS WORKING ON A SAFE DISCHARGE, DR BARAHONA HAS BEEN IN TO SEE THE PT, NO CHANGES, VSS, NO ACUTE CHANGES, WILL CONT TO MONITOR
--- NOTE | 2019-06-17 06:16 | NUR ---
SHIFT SUMMARY: VSS. AFEB. A/OX3. MAKES NEEDS KNOWN. USES URINAL, BUT OCCASIONAL SPILLS IN BED. WOUND VAC DRSG TO R HAND CDI. CONT SUCTION AT 120MMHG. SCANT TO NO SEROSANGUINOUS DRAINAGE IN TUBING. PT ABLE TO SQUEEZE B HANDS, R IS WEAKER THAN L. TRACE SWELLING IN R HAND. CAP REFILL <3 SEC IN BUE. DENIES PAIN IN R HAND. TYLENOL ADMINISTERED FOR HEADACHE- PT SLEPT AFTER. BED LOW, CALL BUTTON IN REACH. BED ALARM ON.
--- NOTE | 2019-06-17 19:30 | NUR ---
DUGLAS IS IN A GOOD MOOD, SMILING AND HAPPY. STATES HAND HURTS SLIGHTLY BUT NOT TO BAD. ASKED HOW HE HURT HIMSELF. STATES HE FELL ON GLASS. HE WAS ABLE TO TELL DATE AND MONTH BY LOOKING AT THE WHITE BOARD. AND WAS ABLE TO SAY WHAT HOSPITAL HE WAS AT. HE DENIED ANY THOUGHT OF SUCIDE AT THIS TIME. STATES HE IS FEELING BETTER. BUT DOES HAVE SOME CONFUSION ABOUT THINGS SUCH HE STATES THE COMPUTERS CAUSE HIM NAUSEA WHEN WE USE THEM. WILL CONTINUE TO MONITOR. URINAL AT BEDSIDE, AND CALL LIGHT IN HAND, BED ALARM IS ON.
--- NOTE | 2019-06-17 19:35 | NUR ---
END OF SHIFT SUMMARY: PATIENT UP TO CHAIR THIS MORNING AND FOR LUNCH. PATIENT CALM AND COOPERATIVE WITH RN AND HAND LENS POLISHER. PATIENT WALKED IN ROOM WITH THERAPY. PATIENT HAS A MODERATE APPETITE. PATIENT REPORTED PAIN IN RIGHT HAND AND RIGHT HIP. MEDICATED PER EMAR (PATIENT DENIES OTHER INTERVENTIONS). PATIENT DENIES SUICIDAL IDEATION OR TAKING STEPS TO HARM HIMSELF. PATIENT SMILED AND MADE EYE CONTACT WITH THE RN. PATIENT AGREED TO A BED BATH TODAY.
--- NOTE | 2019-06-18 05:30 | NUR ---
SHIFT SUMMARY: DUGLAS HAS BEEN PLEASANT AND COOPERATIVE ALL NIGHT. HE REPORTED PAIN IN RIGHT HAND ONCE TONIGHT AND TYLENOL WAS GIVEN. WOUND VAC HAS REMAINED PATENT AND DRAINING. HE HAS USED URINAL IN THE BED BUT FOUND OUT HE WAS MISSING SOME, HE NEEDED A FULL BED CHANGE. ENCOURAGED HIM TO CALL FOR HELP WHEN HE HAD TO GO. SO FAR HE HAS BEEN DOING THAT. ATTENDS IS STILL DRY THIS AM. CALL LIGHT HAS REMAINED IN REACH AND HE USED IT APPROPRIATLY. NO OTHER CHANGES TO NOTE AT THIS TIME.
--- NOTE | 2019-06-18 14:56 | NUR ---
ASKED FOR PAIN MED TYLENOL NOT HELPING . TRAMADOL 50 MG Q8 PRN
--- NOTE | 2019-06-18 16:05 | NUR ---
ALERT. ORIENTED. HX SCHIZOPHRENIA. COOPERATIVE. TALKS A LOT ABOUT DIFFERENT THINGS ;I.E., HOW THERE ARE [facility]. PATIENT HAS BEEN VERY MELLOW FOR THIS RN, BUT NOT FOR OTHER STAFF. WOUND VAC CHANGED AND PIC TAKEN. RWEPORT TO FRANK CABRERA
--- NOTE | 2019-06-18 17:33 | NUR ---
HAD PT FROM 1600 UNTIL 1914 END OF SHIFT. PT ALERT AND PLEASANT, VERBAL AND COOPERATIVE. FED HIMSELF DINNER SITTING UP IN BED. WOUND VAC RH PATENT AND SECURE. PT STATES A LITTLE PAIN IN HAND THAT IS TOLERABLE ABOUT A 3. WILL REPORT TO NIGHT RN.
--- NOTE | 2019-06-18 19:07 | NUR ---
DUGLAS IS WATCHING TV. WOUND VAC IS WORKING, STATES HIS HAND HURTS A LITTLE. URINAL EMPTIED, 200 ML OF ROJO YELLOW URINE. ATTENDS IS DRY AT THIS TIME. CALL LIGHT IN HAND. DIET PEPSI GIVEN. BED ALARM IS ON.
--- NOTE | 2019-06-19 05:54 | NUR ---
SHIFT SUMMARY: DUGLAS HAS BEEN IN A GOOD MOOD ALL NIGHT, BEING COOPERATIVE AND PLEASANT TO WORK WITH. WOUND VAC HAS REMAINED PATENT WITH NO DRAINAGE IN THE CANISTER. PAIN HAS REMAINED CONTROLLED, WITH ONLY RECEIVING TYLENOL RIGHT BEFORE BED. DENIED NEED FOR IT WHEN HE WOKE TO USE THE BATHROOM. HE SLEPT GOOD THROUGHOUT THE NIGHT AND USED CALL LIGHT APPROPRIATLY. HE ONLY ATTEMPTED TO GET UP ONCE WITH ALARM SOUNDING TO CLOSE THE BLINDS ON THE WINDOW. OTHER THEN THAT HE HAD NO ACUTE CHANGES TO REPORT.
--- NOTE | 2019-06-19 17:00 | NUR ---
NO ACUTE CHANGES. PATIENT IS ALERT AND ORIENTED TIMES 3. HE HAS BEEN PLEASANT AND COOPERATIVE THIS SHIFT . URINE DARK, WATER ENCOURAGED. PATIENT WORKED WITH PT AND WAS WALKING HALLS WITH SBA AND FFW. PATIENT IS RESTING IN BED WITH NO COMPLAINTS. CALL LIGHT WITHIN REACH.
--- NOTE | 2019-06-20 00:20 | NUR ---
BEGINNING SHIFT SUMMARY ASSUMED CARE OF PT AT 1900. PT WAS LYING IN BED SLEEPING. PT IS A/O X4, BUT HAS TIMES OF CONFUSION AND HAD INAPPROPIATE RESPONSES TO QUESTIONS. HEART SOUNDS IRREGULAR, BILATERAL PERIPHERAL EDEMA IN LOWER EXTREMITIES +2. FINE CRACKLES HEARD AT BASES OF LUNGS. URINE DARK, FLUIDS ENCOURAGED. BED ALARM ON, PT ATTEMPTED TO GET OUT OF BED ONCE. WOUND VAC PLACED ON PT R HAND, DRESSING C/D/I, SCANT DISCHARGE IN VAC, DISCHARGE IS RED. PT IS CURRENTLY SLEEPING, CALL LIGHT IN REACH, BED IN LOWEST POSTITION, WILL CONTINUE TO MONITOR.
--- NOTE | 2019-06-20 06:09 | NUR ---
END SHIFT SUMMARY NO ACUTE CHANGES NOTED T/O THE NIGHT. PT BECAME FUSTRATED WHEN HE ASKED TO GO OUT TO SMOKE BUT HAD NO WAY TO GO OUTSIDE. PT IS ALSO FUSTRATED WHEN ASKED TO DRINK WATER OVER SODA. PT SLEPT MOST OF THE NIGHT. PT WAS CONTINENT WITH THE URINAL. CALL LIGHT IN REACH, BED IN LOWEST POSTION, WILL CONTINUE TO MONITOR UNTIL DAYSHIFT NURSE ARRIVES.
--- NOTE | 2019-06-20 17:34 | NUR ---
PT TO DISCHARGE . BUS TICKET OBTAINED FOR PATIENT AND [facility] COM[facility] AT 2030 [facility] [place] PT REFUSED TO HAVE MEDS FILLED SO NO MEDS WHERE FAXED. PT TO GO TO [place] . DOCTOR CAME IN AND REMOVED WOUND VAC AND PT WAS EDUCATED BY NURSE AND DOCTOR ON HOW TO DO DRESSING CHANGES. THIS NURSE PACKED PATIENT WITH SUPPLIES TO GET HIM TO [place].
--- NOTE | 2019-06-20 20:14 | NUR ---
PT. TAKEN DOWNSTAIRS VIA WHEELCHAIR BY OIL SPOT WASHER TO [facility]. BUS TICKET GIVEN. ALL PERSONAL BELONGINGS WITH PT.
== END 2019-06-20 20:20 | disposition home or self-care (01) | DRG 853 ==
LOC: ER 00:12 → MEDS 03:35 → ICUW 03:35 → PCU 03:35 → ICUW 04:06 → PCU 18:29 → ICUW 06-11 15:09 → MEDS 06-12 10:30 → ENPENDDIS 06-14 10:00 → MEDS 06-14 15:08 → ENPENDDIS 06-20 11:45 → MEDS 06-20 20:20
PROVIDERS: Emergency Medicine; Internal Medicine; Orthopaedic Surgery; ADMIT Internal Medicine
PROC: 0JBJ0ZZ Excision of Right Hand Subcutaneous Tissue and Fascia, Open Approach (ICD-10-PCS; principal; 2019-06-11 13:00)
DX: A40.0 Sepsis due to streptococcus, group A (principal); S06.6X0A Traumatic subarachnoid hemorrhage without loss of consciousness, initial encounter; K72.00 Acute and subacute hepatic failure without coma; G92 Toxic encephalopathy; J69.0 Pneumonitis due to inhalation of food and vomit; M62.82 Rhabdomyolysis; I24.8 Other forms of acute ischemic heart disease; F20.9 Schizophrenia, unspecified; F17.210 Nicotine dependence, cigarettes, uncomplicated; K74.60 Unspecified cirrhosis of liver; E87.6 Hypokalemia; Z59.0 Homelessness; B19.20 Unspecified viral hepatitis C without hepatic coma; W19.XXXA Unspecified fall, initial encounter; Y92.9 Unspecified place or not applicable
CPT/HCPCS: 36415; 51702; 70450; 71045; 73130; 73201; 80048; 80053; 81001; 82140; 82550; 82553; 83605; 83690; 84484; 85025; 85027; 85610; 85730; 86140; 87040; 87070; 87075; 87086; 87147; 87205; 90686; 90714; 93005; 93010; 96365; 97110; 97161; 97166; 97530; 97535; 99285-25; A9270; G0008; G0480; J1100; J2405; J2543; J2704; J2710; J3010; J3480; J7030; Q9967

== ENCOUNTER 2019-06-21 21:19 | Emergency (ER) | payer MEDICARE ==
[~2019-06-21] VITALS: Ht 180.3 cm; Wt 99.8 kg
[~2019-06-21 21:19] MED LIST changes: +Augmentin 875-1 EACH PO; +Culturelle1 CAP PO; +Kristalose20 GM PO
== END 2019-06-22 00:10 | disposition home or self-care (01) ==
LOC: ER 21:19
DX: F10.129 Alcohol abuse with intoxication, unspecified (principal); Y90.6 Blood alcohol level of 120-199 mg/100 ml; I10 Essential (primary) hypertension; F20.9 Schizophrenia, unspecified; Z86.19 Personal history of other infectious and parasitic diseases; F17.210 Nicotine dependence, cigarettes, uncomplicated; Z79.899 Other long term (current) drug therapy
CPT/HCPCS: 99284; G0480

== ENCOUNTER 2019-06-25 16:35 | Emergency (ER) | payer MEDICARE ==
[~2019-06-25] VITALS: Ht 177.8 cm; Wt 81.7 kg
[2019-06-25 17:52] LABS: BASOPHILS ABSOLUTE AUTO 0.07 K/mm3 (0.00-0.23); BASOPHILS PERCENT AUTO 1 % (0-2); EOSINOPHILS ABSOLUTE AUTO 0.25 K/mm3 (0.00-0.68); EOSINOPHILS PERCENT AUTO 4 % (0-6); Hematocrit 38.1 % (37.0-53.0); Hemoglobin 12.5 g/dL (13.5-17.5); IMMATURE GRAN ABSOLUTE AUTO 0.02 K/mm3 (0.00-0.10); IMMATURE GRAN PERCENT AUTO 0 % (0-1); LYMPHOCYTES ABSOLUTE AUTO 1.18 K/mm3 (0.84-5.20); LYMPHOCYTES PERCENT AUTO 17 % (21-46); MONOCYTES PERCENT AUTO 19 % (4-13); Mean Corpuscular HGB 32.7 pg (26.0-34.0); Mean Corpuscular HGB Conc 32.8 g/dL (31.5-36.5); Mean Corpuscular Volume 100 fL (80-100); NEUTROPHILS PERCENT AUTO 60 % (41-73); Platelet Count 156 K/mm3 (150-400); RDW Coefficient Variation 14.4 % (11.7-14.2); Red Blood Cell Count 3.82 M/mm3 (4.30-5.90); White Blood Cell Count 7.02 K/mm3 (4.00-11.30)
[2019-06-25 18:19] LABS: Alanine Aminotransfer (ALT/SGP 34 U/L (12-78); Albumin, Blood 2.3 g/dL (3.4-5.0); Albumin/Globulin Ratio 0.5 (0.8-1.8); Alk Phos 208 U/L (50-136); Anion Gap 5 mmol/L (6-16); Aspartate Aminotrans (AST/SGOT 38 U/L (12-37); Bilirubin, Total 1.4 mg/dL (0.1-1.0); Blood Urea Nitrogen 9 mg/dL (8-24); Bun/Creatinine Ratio 11.3 (12.0-20.0); CO2, Blood 27 mmol/L (21-32); Calcium, Blood 8.8 mg/dL (8.5-10.1); Chloride, Blood 112 mmol/L (98-108); Ethanol (Alcohol), Blood, Med <3 mg/dL; Globulin, Blood 4.5 g/dL (2.2-4.0); Glomerular Filtration Rate >60 (60-); Glucose, Blood 104 mg/dL (70-99); Potassium, Blood 3.4 mmol/L (3.5-5.5); Sodium, Blood 144 mmol/L (136-145); Total Protein, Blood 6.8 g/dL (6.4-8.2)
[2019-06-25 18:39] LABS: Source, Urine Clean Catch
[2019-06-25 18:50] LABS: Appearance, Urine Clear (Clear); Bilirubin, Urine Neg (Neg); Blood, Urine 1+ (Neg); Color, Urine Amber (P-Yellow); Glucose Qualitative, Urine Neg (Neg); Ketones, Urine Neg (Neg); Leukocyte Esterase, Urine Neg (Neg); Nitrite, Urine Neg (Neg); Protein, Urine Neg (Neg); Specific Gravity, Urine 1.015 (1.003-1.022); Urobilinogen, Urine 2+ (Normal); pH, Urine 6.5 (5.0-8.0)
[2019-06-25 19:02] LABS: Bacteria Few /hpf; Hyaline Casts 0-2 /lpf (0-2); Red Blood Cells, Urine 0-2 /hpf (0-2); Squamous Epithelial Cells Rare /hpf (Few)
[2019-06-25 19:05] LABS: U Amphetamine Screen Not Detected; U Barbituate Screen Not Detected; U Benzodiazapine Screen DETECTED; U Buprenorphine Screen Not Detected; U Cannabinoids Screen Not Detected; U Cocaine Screen Not Detected; U Methadone Screen Not Detected; U Methamphetamine Screen Not Detected; U Opiates Screen Not Detected; U Oxycodone Screen Not Detected; U Phencyclidine Screen Not Detected; U Propoxyphene Screen Not Detected
== END 2019-06-25 22:00 | disposition home or self-care (01) ==
LOC: ER 16:35
PROVIDERS: Emergency Medicine
DX: R53.1 Weakness (principal); I10 Essential (primary) hypertension; Z59.0 Homelessness
CPT/HCPCS: 36415; 70450; 71046; 80053; 81001; 82947; 85025; 93005; 93010; 99285-25; G0480

== ENCOUNTER 2019-06-27 05:03 | Emergency (ER) | payer MEDICARE ==
[~2019-06-27] VITALS: Ht 180.3 cm; Wt 99.8 kg
[2019-06-28] MEDS ORDERED: Bactrim Ds Tab1 EACH PO (00:16)
[2019-06-28] MEDS ORDERED: Keflex500 MG PO (00:16)
== END 2019-06-27 06:40 | disposition home or self-care (01) ==
LOC: ER 05:03
DX: R53.1 Weakness (principal); M25.519 Pain in unspecified shoulder; G89.29 Other chronic pain; F17.210 Nicotine dependence, cigarettes, uncomplicated; I10 Essential (primary) hypertension
CPT/HCPCS: 99283

== ENCOUNTER 2019-06-27 22:36 | Emergency (ER) | payer MEDICARE ==
[~2019-06-27] VITALS: Ht 180.3 cm; Wt 99.8 kg
[2019-06-28] MEDS ORDERED: Bactrim Ds Tab1 EACH PO (00:16)
[2019-06-28] MEDS ORDERED: Keflex500 MG PO (00:16)
== END 2019-06-28 00:32 | disposition home or self-care (01) ==
LOC: ER 22:36
DX: L98.499 Non-pressure chronic ulcer of skin of other sites with unspecified severity (principal); F20.9 Schizophrenia, unspecified; F17.210 Nicotine dependence, cigarettes, uncomplicated
CPT/HCPCS: 73120; 96372; 99283-25; A9270-GY; J0696

== ENCOUNTER 2019-06-30 23:18 | Emergency (ER) | payer MEDICARE ==
[~2019-06-30] VITALS: Ht 180.3 cm; Wt 99.8 kg
[~2019-06-30 23:18] MED LIST changes: +Bactrim Ds Tab1 EACH PO; +Keflex500 MG PO
== END 2019-07-01 01:10 | disposition home or self-care (01) ==
LOC: ER 23:18
DX: S61.401A Unspecified open wound of right hand, initial encounter (principal); R60.0 Localized edema; F20.9 Schizophrenia, unspecified; I10 Essential (primary) hypertension; F17.210 Nicotine dependence, cigarettes, uncomplicated; Z59.0 Homelessness; X58.XXXA Exposure to other specified factors, initial encounter
CPT/HCPCS: 99283

== ENCOUNTER 2019-08-25 09:39 | Emergency (ER) | payer MEDICARE ==
[~2019-08-25] VITALS: Ht 177.8 cm; Wt 108.9 kg
[2019-08-25 11:11] LABS: BASOPHILS ABSOLUTE AUTO 0.04 K/mm3 (0.00-0.23); BASOPHILS PERCENT AUTO 1 % (0-2); EOSINOPHILS ABSOLUTE AUTO 0.15 K/mm3 (0.00-0.68); EOSINOPHILS PERCENT AUTO 3 % (0-6); Hematocrit 43.1 % (37.0-53.0); Hemoglobin 14.9 g/dL (13.5-17.5); IMMATURE GRAN ABSOLUTE AUTO 0.02 K/mm3 (0.00-0.10); IMMATURE GRAN PERCENT AUTO 0 % (0-1); LYMPHOCYTES ABSOLUTE AUTO 1.07 K/mm3 (0.84-5.20); LYMPHOCYTES PERCENT AUTO 20 % (21-46); MONOCYTES ABSOLUTE AUTO 0.92 K/mm3 (0.16-1.47); MONOCYTES PERCENT AUTO 17 % (4-13); Mean Corpuscular HGB Conc 34.6 g/dL (31.5-36.5); Mean Corpuscular Volume 96 fL (80-100); Mean Platelet Volume 11.6 fL (9.1-12.4); NEUTROPHILS ABSOLUTE AUTO 3.18 K/mm3 (1.96-9.15); NEUTROPHILS PERCENT AUTO 59 % (41-73); Platelet Count 125 K/mm3 (150-400); RDW Coefficient Variation 14.7 % (11.7-14.2); RDW Standard Deviation 50.8 fL (35.1-46.3); Red Blood Cell Count 4.51 M/mm3 (4.30-5.90); White Blood Cell Count 5.38 K/mm3 (4.00-11.30)
[2019-08-25 12:47] LABS: Ethanol (Alcohol), Blood, Med <3 mg/dL
[2019-08-25 12:53] LABS: Alanine Aminotransfer (ALT/SGP 67 U/L (12-78); Albumin, Blood 3.1 g/dL (3.4-5.0); Albumin/Globulin Ratio 0.6 (0.8-1.8); Alk Phos 122 U/L (50-136); Anion Gap 8 mmol/L (6-16); Aspartate Aminotrans (AST/SGOT 129 U/L (12-37); Bilirubin, Total 4.6 mg/dL (0.1-1.0); Blood Urea Nitrogen 26 mg/dL (8-24); Bun/Creatinine Ratio 24.5 (12.0-20.0); CO2, Blood 27 mmol/L (21-32); Calcium, Blood 9.8 mg/dL (8.5-10.1); Chloride, Blood 105 mmol/L (98-108); Creatinine, Blood 1.06 mg/dL (0.60-1.20); Globulin, Blood 5.2 g/dL (2.2-4.0); Glomerular Filtration Rate >60 (60-); Glucose, Blood 90 mg/dL (70-99); Potassium, Blood 3.1 mmol/L (3.5-5.5); Sodium, Blood 140 mmol/L (136-145); Total Protein, Blood 8.3 g/dL (6.4-8.2)
== END 2019-08-25 14:59 | disposition home or self-care (01) ==
LOC: ER 09:39
PROVIDERS: Emergency Medicine
DX: R52 Pain, unspecified (principal); I10 Essential (primary) hypertension; F17.210 Nicotine dependence, cigarettes, uncomplicated
CPT/HCPCS: 36415; 71046; 80053; 85025; 93005; 93010; 99285-25; A9270-GY; G0480

== ENCOUNTER 2019-08-26 13:29 | Inpatient (IN) | payer MEDICARE ==
[~2019-08-26] VITALS: Ht 177.8 cm; Wt 86.1 kg
[2019-08-26 15:17] LABS: BASOPHILS ABSOLUTE AUTO 0.05 K/mm3 (0.00-0.23); BASOPHILS PERCENT AUTO 1 % (0-2); EOSINOPHILS ABSOLUTE AUTO 0.31 K/mm3 (0.00-0.68); EOSINOPHILS PERCENT AUTO 6 % (0-6); Hematocrit 39.7 % (37.0-53.0); Hemoglobin 13.9 g/dL (13.5-17.5); IMMATURE GRAN ABSOLUTE AUTO 0.01 K/mm3 (0.00-0.10); IMMATURE GRAN PERCENT AUTO 0 % (0-1); LYMPHOCYTES ABSOLUTE AUTO 1.19 K/mm3 (0.84-5.20); LYMPHOCYTES PERCENT AUTO 21 % (21-46); MONOCYTES ABSOLUTE AUTO 0.65 K/mm3 (0.16-1.47); MONOCYTES PERCENT AUTO 12 % (4-13); Mean Corpuscular HGB 33.2 pg (26.0-34.0); Mean Corpuscular Volume 95 fL (80-100); Mean Platelet Volume 10.9 fL (9.1-12.4); NEUTROPHILS ABSOLUTE AUTO 3.45 K/mm3 (1.96-9.15); NEUTROPHILS PERCENT AUTO 61 % (41-73); Platelet Count 126 K/mm3 (150-400); RDW Coefficient Variation 14.4 % (11.7-14.2); RDW Standard Deviation 49.1 fL (35.1-46.3); Red Blood Cell Count 4.19 M/mm3 (4.30-5.90); White Blood Cell Count 5.66 K/mm3 (4.00-11.30)
[2019-08-26 15:32] LABS: Anion Gap 8 mmol/L (6-16); Blood Urea Nitrogen 24 mg/dL (8-24); Bun/Creatinine Ratio 26.7 (12.0-20.0); CO2, Blood 28 mmol/L (21-32); Calcium, Blood 9.4 mg/dL (8.5-10.1); Chloride, Blood 104 mmol/L (98-108); Ethanol (Alcohol), Blood, Med 5 mg/dL; Glomerular Filtration Rate >60 (60-); Glucose, Blood 96 mg/dL (70-99); Potassium, Blood 2.9 mmol/L (3.5-5.5); Sodium, Blood 140 mmol/L (136-145)
--- NOTE | 2019-08-27 04:48 | NUR ---
SUMMARY PT REMAINS CONFUSED. PT HAD A EPISODE OF AGITATION AND PROVIDER BRADY CALLED FOR OT DOSE OF ATIVAN. PT WAS ABLE TO BE REDIRECTED AND DID NOT NEED ATIVAN. PT IS CONFUSED BUT IS ABLE TO FOLLOW DIRECTION. PT AT FIRST REFUSED TO TAKE LACTOLOUSE BUT AGREED TO TAKE IT WITH SPRITE AND SOME FOOD. PT HAS BEEN SLEEPING WITH SOME COMPLAINT OF LEG DISCOMFORT. PT TX PER EMAR AND ABLE TO GO BACK TO SLEEP. PT CURRENTLY SLEEPING AND BREATHING EASY. CALL LIGHT IN REACH AND BED ALARM ON.
[2019-08-27 05:39] LABS: BASOPHILS ABSOLUTE AUTO 0.05 K/mm3 (0.00-0.23); BASOPHILS PERCENT AUTO 1 % (0-2); EOSINOPHILS ABSOLUTE AUTO 0.22 K/mm3 (0.00-0.68); EOSINOPHILS PERCENT AUTO 4 % (0-6); Hemoglobin 12.1 g/dL (13.5-17.5); IMMATURE GRAN ABSOLUTE AUTO 0.01 K/mm3 (0.00-0.10); IMMATURE GRAN PERCENT AUTO 0 % (0-1); LYMPHOCYTES ABSOLUTE AUTO 1.32 K/mm3 (0.84-5.20); LYMPHOCYTES PERCENT AUTO 24 % (21-46); MONOCYTES ABSOLUTE AUTO 0.63 K/mm3 (0.16-1.47); MONOCYTES PERCENT AUTO 12 % (4-13); Mean Corpuscular HGB 33.2 pg (26.0-34.0); Mean Corpuscular HGB Conc 34.6 g/dL (31.5-36.5); Mean Corpuscular Volume 96 fL (80-100); Mean Platelet Volume 10.9 fL (9.1-12.4); NEUTROPHILS ABSOLUTE AUTO 3.27 K/mm3 (1.96-9.15); NEUTROPHILS PERCENT AUTO 59 % (41-73); Platelet Count 114 K/mm3 (150-400); RDW Coefficient Variation 14.4 % (11.7-14.2); RDW Standard Deviation 50.2 fL (35.1-46.3); Red Blood Cell Count 3.65 M/mm3 (4.30-5.90)
[2019-08-27 05:49] LABS: Anion Gap 6 mmol/L (6-16); Blood Urea Nitrogen 18 mg/dL (8-24); Bun/Creatinine Ratio 21.4 (12.0-20.0); CO2, Blood 28 mmol/L (21-32); Calcium, Blood 8.7 mg/dL (8.5-10.1); Chloride, Blood 108 mmol/L (98-108); Creatinine, Blood 0.84 mg/dL (0.60-1.20); Glomerular Filtration Rate >60 (60-); Glucose, Blood 102 mg/dL (70-99); Potassium, Blood 2.8 mmol/L (3.5-5.5); Sodium, Blood 142 mmol/L (136-145)
--- NOTE | 2019-08-27 08:47 | NUR ---
wondering where his daughters are. no one listed in the past years for any of his contacts. eating breakfast took his lactulose and potassium
[2019-08-27 11:41] LABS: Vancomycin, Trough 22.7 ug/mL (5.0-10.0)
--- NOTE | 2019-08-27 18:34 | NUR ---
SHIFT SUMMARY ASSUMED CARE FROM HERLINDA STEARNS RN @ 1300. PATIENT SOMEWHAT CONFUSED AND AT TIMES NONCOMPLIANT. HE GETS AGITATED EASILY AT TIMES. HE IS VERY UNSTEADY ON HIS FEET BUT REFUSES TO ALLOW STAFF TO PLACE SOCKS OR ASSIST WITH AMBULATION. HE GETS AGITATED AND COMBATIVE WHEN STAFF TRY TO ASSIST HIM. PATIENT REPORTS HIS LAST BM WAS DIARRHEA BUT HE REFUSED TO ALLOW NURSING STAFF TO ASSESS IT. HIS PREVIOUS BM WAS FULLY FORMED. HE HAS TAKEN HIS LACTULOSE EACH TIME WITHOUT COMPLAINT. IV THIAMINE RUNNING.
[2019-08-28 05:28] LABS: BASOPHILS ABSOLUTE AUTO 0.04 K/mm3 (0.00-0.23); BASOPHILS PERCENT AUTO 1 % (0-2); EOSINOPHILS ABSOLUTE AUTO 0.17 K/mm3 (0.00-0.68); EOSINOPHILS PERCENT AUTO 4 % (0-6); Hemoglobin 12.1 g/dL (13.5-17.5); IMMATURE GRAN ABSOLUTE AUTO 0.01 K/mm3 (0.00-0.10); IMMATURE GRAN PERCENT AUTO 0 % (0-1); LYMPHOCYTES ABSOLUTE AUTO 1.17 K/mm3 (0.84-5.20); LYMPHOCYTES PERCENT AUTO 26 % (21-46); MONOCYTES ABSOLUTE AUTO 0.61 K/mm3 (0.16-1.47); MONOCYTES PERCENT AUTO 14 % (4-13); Mean Corpuscular HGB 32.6 pg (26.0-34.0); Mean Corpuscular HGB Conc 33.6 g/dL (31.5-36.5); Mean Corpuscular Volume 97 fL (80-100); Mean Platelet Volume 11.1 fL (9.1-12.4); NEUTROPHILS ABSOLUTE AUTO 2.44 K/mm3 (1.96-9.15); NEUTROPHILS PERCENT AUTO 55 % (41-73); Platelet Count 97 K/mm3 (150-400); RDW Coefficient Variation 14.5 % (11.7-14.2); RDW Standard Deviation 51.2 fL (35.1-46.3); Red Blood Cell Count 3.71 M/mm3 (4.30-5.90); White Blood Cell Count 4.44 K/mm3 (4.00-11.30)
[2019-08-28 05:45] LABS: Anion Gap 6 mmol/L (6-16); Blood Urea Nitrogen 13 mg/dL (8-24); Bun/Creatinine Ratio 12.6 (12.0-20.0); CO2, Blood 29 mmol/L (21-32); Calcium, Blood 8.4 mg/dL (8.5-10.1); Chloride, Blood 105 mmol/L (98-108); Creatinine, Blood 1.03 mg/dL (0.60-1.20); Glomerular Filtration Rate >60 (60-); Glucose, Blood 105 mg/dL (70-99); Magnesium, Blood 2.1 mg/dL (1.6-2.4); Potassium, Blood 2.8 mmol/L (3.5-5.5); Sodium, Blood 140 mmol/L (136-145)
--- NOTE | 2019-08-28 06:45 | NUR ---
SUMMARY PT MORE ALERT THIS SHIFT. PT IS ABLE TO MAKE HIS NEEDS KNOWN AND FOLLOW DIRECTION W/OUT AGITATION. PT HAD NO ISSUES NOTED AND SLEPT WELL. PT CURRENTLY SLEEPING. CALL LIGHT IN REACH AND BED ALARM ON
--- NOTE | 2019-08-28 17:20 | NUR ---
SHIFT SUMMARY- PT A/O TO PERSON AND PLACE. PT MEDICATED WITH TYLENOL X1 FOR CHRONIC NECK AND BACK PAIN. LS CLEAR, ON RA. HRR. REDNESS AND TIGHT SKIN TO RIGHT GUTIERREZ WITH MEPILEX IN PLACE. CIWA STABLE. PT HAS BEEN PLEASANT AND COOPERATIVE. USES URINAL AT BEDSIDE AND INCONT AT TIMES. UP 1 ASSIST TO BATHROOM. NO OTHER ACUTE CHANGES THIS SHIFT.
--- NOTE | 2019-08-29 04:56 | NUR ---
08/29/19 0450 PT AWAKE AND WATCHING TV. REQUESTING FOOD AND "PEPSI" OFTEN. RN ENCOURAGED PT TO DRINK HEALTHIER ITEMS BUT PT BECAME ANGRY AND THREATHENED TO LEAVE IF HE DOES NOT GET IT. FOOD/DRINKS GIVEN. VITALS STABLE. REPOSITIONS SELF FROM ONE SIDE TO THE OTHER. VOIDING QS. MEDICATED ONCE FOR CHRONIC PAIN.
[2019-08-29 05:33] LABS: BASOPHILS ABSOLUTE AUTO 0.04 K/mm3 (0.00-0.23); BASOPHILS PERCENT AUTO 1 % (0-2); EOSINOPHILS ABSOLUTE AUTO 0.28 K/mm3 (0.00-0.68); EOSINOPHILS PERCENT AUTO 6 % (0-6); Hematocrit 36.2 % (37.0-53.0); Hemoglobin 12.3 g/dL (13.5-17.5); IMMATURE GRAN ABSOLUTE AUTO 0.01 K/mm3 (0.00-0.10); IMMATURE GRAN PERCENT AUTO 0 % (0-1); LYMPHOCYTES ABSOLUTE AUTO 1.38 K/mm3 (0.84-5.20); LYMPHOCYTES PERCENT AUTO 30 % (21-46); MONOCYTES ABSOLUTE AUTO 0.68 K/mm3 (0.16-1.47); MONOCYTES PERCENT AUTO 15 % (4-13); Mean Corpuscular HGB 33.3 pg (26.0-34.0); Mean Corpuscular Volume 98 fL (80-100); Mean Platelet Volume 11.5 fL (9.1-12.4); NEUTROPHILS ABSOLUTE AUTO 2.16 K/mm3 (1.96-9.15); NEUTROPHILS PERCENT AUTO 48 % (41-73); Platelet Count 96 K/mm3 (150-400); RDW Coefficient Variation 14.5 % (11.7-14.2); RDW Standard Deviation 51.5 fL (35.1-46.3); Red Blood Cell Count 3.69 M/mm3 (4.30-5.90); White Blood Cell Count 4.55 K/mm3 (4.00-11.30)
[2019-08-29 05:52] LABS: Albumin, Blood 2.1 g/dL (3.4-5.0); Anion Gap 4 mmol/L (6-16); Blood Urea Nitrogen 12 mg/dL (8-24); Bun/Creatinine Ratio 12.9 (12.0-20.0); CO2, Blood 29 mmol/L (21-32); Calcium, Blood 8.5 mg/dL (8.5-10.1); Chloride, Blood 105 mmol/L (98-108); Creatinine, Blood 0.93 mg/dL (0.60-1.20); Glomerular Filtration Rate >60 (60-); Glucose, Blood 106 mg/dL (70-99); Phosphorus, Blood 1.8 mg/dL (2.5-4.9); Potassium, Blood 3.4 mmol/L (3.5-5.5); Sodium, Blood 138 mmol/L (136-145)
--- NOTE | 2019-08-29 11:23 | NUR ---
PATIENT'S BEHAVIOR AND REFUSAL OF THERAPY THIS MORNING, PATIENT BECAME VERBALLY AND PHYSICALLY AGGRESSIVE WITH STAFF AFTER PHYSICAL THERAPY TRIED TO INITIATE THERAPY. PATIENT NOT AMENABLE TO GET OUT OF BED TO THE CHAIR FOR BREAKFAST. 1125: STAFF EXPLAINED TO PATIENT REGARDING THE IMPORTANCE OF GETTING OUT OF BED TO PROMOTE STRENGTH. PATIENT STATED "IF YOU TOUCH ME TO GET ME UP OUT OF BED, I WILL HIT YOU."
--- NOTE | 2019-08-29 15:43 | NUR ---
TEMPERATURE RECHECKED. ORAL TEMP RECHECKED AND WITHIN NORMAL LIMITS. WILL CONITUE TO MONITOR.
--- NOTE | 2019-08-29 17:33 | NUR ---
SHIFT SUMMARY PATIENT WITH PERIODS OF AGGRESSION AND AGITATION TOWARDS STAFF, PSYCH CONSULT PLACED, FAXED FACE SHEET TO ED. PATIENT REFUSING TO GET OUT OF THE BED, SEE PREVIOUS CLINICAL NOTE. PATIENT USING URINAL TO VOID, REFUSING TO GET TO THE BATHROOM.
--- NOTE | 2019-08-30 03:42 | NUR ---
SHIFT SUMMARY ASSUMED CARE PF PT AT 1900. PT IS ALERT AND ORIENTED TO EVERYTHING BUT THE TIME AND YEAR, PT DENIES N/T IN EXTREMITIES. PT WAS ANGRY AND REFUSING CARE AT THE BEGINNING OF THE SHIFT, BUT IS NOT COOPERATIVE. PT PUPILS WERE DIFFERENT SIZES AND SLUGGISH IN RESPONSE, DOCTOR NOTIFIED, AMONIA LEVELS CHECK, LABS ARE IMPROVING FROM BEFORE. HEART SOUNDS REGULAR, LUNG SOUNDS DIMINISHED BUT CLEAR, DENIES SOB/ DYSPNEA AT THIS TIME. PT WAS INCONTENT OF STOOL TONIGHT, BUT DID WALK TO THE BATHROOM WITH 1P SBA. PT USES THE URINAL DURING THE NIGHT. NO ACUTE EVENTS OVER NIGHT. PT SLEPT ON AND OFF DURING THE NIGHT. CALL LIGHT IN REACH, BED ALARM ON, BED IN LOWEST POSTION, WILL CONTINUE TO MONITOR UNTIL DAYSHIFT NURSE ARRIVES.
[2019-08-30 06:48] LABS: BASOPHILS ABSOLUTE AUTO 0.04 K/mm3 (0.00-0.23); BASOPHILS PERCENT AUTO 1 % (0-2); EOSINOPHILS ABSOLUTE AUTO 0.29 K/mm3 (0.00-0.68); EOSINOPHILS PERCENT AUTO 6 % (0-6); Hematocrit 34.6 % (37.0-53.0); Hemoglobin 11.6 g/dL (13.5-17.5); IMMATURE GRAN ABSOLUTE AUTO 0.01 K/mm3 (0.00-0.10); IMMATURE GRAN PERCENT AUTO 0 % (0-1); LYMPHOCYTES ABSOLUTE AUTO 1.48 K/mm3 (0.84-5.20); LYMPHOCYTES PERCENT AUTO 28 % (21-46); MONOCYTES ABSOLUTE AUTO 0.78 K/mm3 (0.16-1.47); MONOCYTES PERCENT AUTO 15 % (4-13); Mean Corpuscular HGB Conc 33.5 g/dL (31.5-36.5); Mean Corpuscular Volume 98 fL (80-100); Mean Platelet Volume 11.2 fL (9.1-12.4); NEUTROPHILS ABSOLUTE AUTO 2.71 K/mm3 (1.96-9.15); NEUTROPHILS PERCENT AUTO 51 % (41-73); Platelet Count 96 K/mm3 (150-400); RDW Coefficient Variation 14.9 % (11.7-14.2); RDW Standard Deviation 53.3 fL (35.1-46.3); Red Blood Cell Count 3.52 M/mm3 (4.30-5.90); White Blood Cell Count 5.31 K/mm3 (4.00-11.30)
[2019-08-30 07:04] LABS: Anion Gap 2 mmol/L (6-16); Blood Urea Nitrogen 12 mg/dL (8-24); Bun/Creatinine Ratio 14.3 (12.0-20.0); CO2, Blood 30 mmol/L (21-32); Calcium, Blood 8.2 mg/dL (8.5-10.1); Chloride, Blood 108 mmol/L (98-108); Creatinine, Blood 0.84 mg/dL (0.60-1.20); Glomerular Filtration Rate >60 (60-); Glucose, Blood 106 mg/dL (70-99); Phosphorus, Blood 2.1 mg/dL (2.5-4.9); Potassium, Blood 3.2 mmol/L (3.5-5.5); Sodium, Blood 140 mmol/L (136-145)
--- NOTE | 2019-08-30 17:42 | NUR ---
PT IS A/OX3, PLEASANT AND COOPERATIVE SO FAR THIS SHIFT, THE PT APPEARS TO BE BREATHING EASILY ON RA AT THIS TIME, THE PT AGREED TO WORK WITH THE PHYSICAL THERAPIST TODAY, AND WAS UP AMBULATING IN THE [place] USEING THE FWW WITH THE THERAPIST, PT DENIED ANY PAIN SO FAR THIS SHIFT, CALL LIGHT IN REACH, WILL CONTINUE TO MONITOR AND ASSESS FOR CHANGES
--- NOTE | 2019-08-31 03:08 | NUR ---
SHIFT SUMMARY ASSUMED CARE OF PT AT 1900. PT IS ALERT AND ORIENTED TO SELF, FAMILY, AND PARTS OF EVENTS, DENIES N/T AT THIS TIME. PT IS COMPLIANT WITH CARE TONIGHT, PT C/O NOT BEING ABLE TO SLEEP BECUASE PEOPLE COME IN AND OUT OF HIS ROOM. HEART SOUNDS REGULAR, LUNG SOUNDS CLEAR BUT DIMINISHED, PT DENIES CP/SOB AT THIS TIME. PT STATES HE HAS NBO NEW COMPLAINTS SINCE YESTERDAY. PT SLEPT 2-3 HOURS AT A TIME, PT ASKS FOR SODA AND SNACKS OFTEN. PT USED URINAL IN BED ALL NIGHT. CALL LIGHT IN REACH, BED IN LOWEST POSTION, WILL CONTINUE TO MONITOR UNTIL DAYSHIFT NURSE ARRIVES.
[2019-08-31 09:43] LABS: Hematocrit 37.3 % (37.0-53.0); Hemoglobin 12.5 g/dL (13.5-17.5)
[2019-08-31 10:04] LABS: Albumin, Blood 2.2 g/dL (3.4-5.0); Anion Gap 2 mmol/L (6-16); Blood Urea Nitrogen 10 mg/dL (8-24); Bun/Creatinine Ratio 12.3 (12.0-20.0); CO2, Blood 27 mmol/L (21-32); Calcium, Blood 8.5 mg/dL (8.5-10.1); Chloride, Blood 109 mmol/L (98-108); Creatinine, Blood 0.81 mg/dL (0.60-1.20); Glomerular Filtration Rate >60 (60-); Glucose, Blood 92 mg/dL (70-99); Phosphorus, Blood 2.3 mg/dL (2.5-4.9); Potassium, Blood 3.5 mmol/L (3.5-5.5); Sodium, Blood 138 mmol/L (136-145)
--- NOTE | 2019-08-31 19:34 | NUR ---
PT IS A/OX3, PLEASANT AND COOPERATIVE TODAY, THE PT APPEARS TO BE BREATHING EASILY AT REST ON RA, THE PT WAS UP AMBULATING IN HIS ROOM TODAY UNASSISTED, APPEARED STEADY ON HIS FEET, THE PT DENIED ANY PAIN T/O THE DAY, DRESSING ON THE PTS RLE CHANGED PT TOLERATED WELL, CALL LIGHT IN REACH, NO OTHER CHANGES NOTICED THIS SHIFT
--- NOTE | 2019-09-01 03:41 | NUR ---
SHIFT SUMMARY ASSUMED CARE OF PT AT 1900. PT IS ALERT AND ORIENTED TO SELF, SITUATION AND SURROUNDINGS, DENIES N/T AT THIS TIME, PT IS MORE COOPERATIVE WITH CARE TODAY BUT CAN GET IRRITATED EASILY. HEART SOUNDS REGULAR, LUNG SOUNDS CLEAR, DENIES SOB/CP AT THIS TIME. PT AWOKE AROUND 0100 AND WANTED A SHOWER, PT THOUGHT IT WAS TIME TO GET UP, PT WAS REORIENTED, PT WENT THROUGH BELONINGS AT THIS TIME AND FOUR PACKS OF CIGARETTES AND THREE LIGHTERS WERE FOUND, THESE WERE CONFISCATED AND LOCKED IN HIS DRAW. PT WALKS AROUND THE ROOM INDEPENDENTLY. PT DID NOT SLEEP VERY MUCH DURING THE NIGHT. PT CONSTANTLY ASKS FOR SNACKS AND SODA EVERY TWO HOURS. CALL LIGHT IN REACH, BED IN LOSWET POSITION, WILL CONTINUE TO MONITOR UNTIL DAYSHIFT NURSE ARRIVES.
--- NOTE | 2019-09-01 18:17 | NUR ---
SHIFT SUMMARY. A&OX3, INDEPENDENT IN ROOM. PT DENIES PAIN, SOB, N/V. WOUND TO R GUTIERREZ WITH 100% GRANULATION TISSUE, SUROUNDING TISSUE WITH NO S/SX OF INFECTION, MINIMAL SEROSANGANIOUS DRAINAGE. DRESSING CHANGED. PT SHOWERED TODAY. NO NEW CHANGES OR CONCERNS.
--- NOTE | 2019-09-02 05:14 | NUR ---
SHIFT SUMMARY ALERT, ABLE TO MAKE NEEDS KNOWN. MOSTLY COOPERATIVE WITH CARE. IRRITATED ABOUT BEING HOOKED UP TO IV FOR ABX. PATIENT TORE TUBING APART AND STATED THAT WE WILL NOT BE HOOKING HIM BACK UP. OTHERWISE PLEASANT. VSS/AFEBRILE. NO C/O PAIN/DISCOMFORT. DRESSING CLEANSED AND RE-DRESSED TO R GUTIERREZ. INDEPENDENT TO BATHROOM. NO ACUTE CHANGES NOTED OVERNIGHT. BED REMAINS IN LOWEST POSITION. CALL LIGHT AND BELONINGS WITHIN REACH. WCTM. REPORT TO ONCOMING RN.
[2019-09-02] MEDS ORDERED: LACT10SY PO (13:14)
--- NOTE | 2019-09-02 16:04 | NUR ---
1604 PT DISCHARGED VIA TAXI WITH TAXI VOUCHER TO [facility] TO FILL NEW PRESCRIPTION. PT TRANSPORTED VIA W/C WITH SECURITY TO FACILITY ENTRANCE PT HAS BEEN GETTING AGITATED WHEN DISCUSSING DISCHARGE. PT UNCOOPERATIVE WITH GIVEN INFORMATION TO ASSIST IN D/C.
== END 2019-09-02 16:05 | disposition home or self-care (01) | DRG 442 ==
LOC: ER 13:29 → MEDS 17:41 → ENPENDDIS 09-02 11:00 → MEDS 09-02 16:05
PROVIDERS: Emergency Medicine; ADMIT Internal Medicine
DX: K72.00 Acute and subacute hepatic failure without coma (principal); L03.113 Cellulitis of right upper limb; L03.115 Cellulitis of right lower limb; F10.27 Alcohol dependence with alcohol-induced persisting dementia; Z59.0 Homelessness; F20.9 Schizophrenia, unspecified; K70.30 Alcoholic cirrhosis of liver without ascites; E87.6 Hypokalemia; E83.39 Other disorders of phosphorus metabolism; Z91.19 Patient's noncompliance with other medical treatment and regimen; F10.20 Alcohol dependence, uncomplicated; I10 Essential (primary) hypertension; B19.20 Unspecified viral hepatitis C without hepatic coma; R26.9 Unspecified abnormalities of gait and mobility; Z91.81 History of falling; K59.00 Constipation, unspecified
CPT/HCPCS: 36415; 70450; 73120; 73700; 80048; 80069; 80202; 82140; 83605; 83735; 84100; 85014; 85018; 85025; 87040; 94762; 96374; 97116; 97162; 97530; 99285-25; A9270; G0480; J0690; J1650; J3370; J3411; J3475; J7042; J7050; J7060

== ENCOUNTER 2020-07-11 14:21 | Emergency (ER) | payer MEDICARE ==
[~2020-07-11] VITALS: Ht 180.3 cm; Wt 99.8 kg
[2020-07-11] MEDS ORDERED: LIDO700A20 TOP (16:46)
== END 2020-07-11 17:20 | disposition home or self-care (01) ==
LOC: ER 14:21
DX: M54.5 Low back pain (principal); G89.29 Other chronic pain; Z59.0 Homelessness
CPT/HCPCS: 72100; 99284-25

== ENCOUNTER 2020-07-16 12:11 | Emergency (ER) | payer MEDICARE ==
[~2020-07-16] VITALS: Ht 180.3 cm; Wt 95.2 kg
[~2020-07-16 12:11] MED LIST changes: +LIDO700A20 TOP
== END 2020-07-16 16:30 | disposition home or self-care (01) ==
LOC: ER 12:11
DX: R10.9 Unspecified abdominal pain (principal); R30.0 Dysuria; R53.81 Other malaise; M25.551 Pain in right hip; F17.210 Nicotine dependence, cigarettes, uncomplicated; Z59.0 Homelessness
CPT/HCPCS: 99284

== ENCOUNTER 2020-07-25 13:38 | Inpatient (IN) | payer MEDICARE ==
[~2020-07-25] VITALS: Ht 180.3 cm; Wt 98.4 kg
[2020-07-25 14:17] LABS: BASOPHILS ABSOLUTE AUTO 0.04 K/mm3 (0.00-0.23); BASOPHILS PERCENT AUTO 1 % (0-2); EOSINOPHILS ABSOLUTE AUTO 0.18 K/mm3 (0.00-0.68); EOSINOPHILS PERCENT AUTO 5 % (0-6); Hematocrit 37.3 % (37.0-53.0); Hemoglobin 12.7 g/dL (13.5-17.5); IMMATURE GRAN ABSOLUTE AUTO 0.01 K/mm3 (0.00-0.10); IMMATURE GRAN PERCENT AUTO 0 % (0-1); LYMPHOCYTES ABSOLUTE AUTO 0.89 K/mm3 (0.84-5.20); LYMPHOCYTES PERCENT AUTO 23 % (21-46); MONOCYTES ABSOLUTE AUTO 0.61 K/mm3 (0.16-1.47); MONOCYTES PERCENT AUTO 16 % (4-13); Mean Corpuscular HGB 34.6 pg (26.0-34.0); Mean Corpuscular Volume 102 fL (80-100); Mean Platelet Volume 10.4 fL (9.1-12.4); NEUTROPHILS PERCENT AUTO 56 % (41-73); Platelet Count 148 K/mm3 (150-400); RDW Coefficient Variation 14.5 % (11.7-14.2); RDW Standard Deviation 54.6 fL (35.1-46.3); Red Blood Cell Count 3.67 M/mm3 (4.30-5.90); White Blood Cell Count 3.93 K/mm3 (4.00-11.30)
[2020-07-25 14:33] LABS: Alanine Aminotransfer (ALT/SGP 44 U/L (12-78); Albumin, Blood 2.3 g/dL (3.4-5.0); Albumin/Globulin Ratio 0.7 (0.8-1.8); Alk Phos 167 U/L (50-136); Anion Gap 5 mmol/L (6-16); Aspartate Aminotrans (AST/SGOT 49 U/L (12-37); Bilirubin, Total 1.7 mg/dL (0.1-1.0); Blood Urea Nitrogen 9 mg/dL (8-24); Bun/Creatinine Ratio 12.9 (12.0-20.0); CO2, Blood 27 mmol/L (21-32); Calcium, Blood 8.7 mg/dL (8.5-10.1); Chloride, Blood 115 mmol/L (98-108); Globulin, Blood 3.5 g/dL (2.2-4.0); Glomerular Filtration Rate >60 (60-); Glucose, Blood 129 mg/dL (70-99); Potassium, Blood 3.3 mmol/L (3.5-5.5); Sodium, Blood 147 mmol/L (136-145); Total Protein, Blood 5.8 g/dL (6.4-8.2)
[2020-07-25 15:25] LABS: Troponin I <0.015 ng/mL (0.000-0.040)
[2020-07-25 15:28] LABS: Source, Urine Clean Catch
[2020-07-25 15:38] LABS: Appearance, Urine Clear (Clear); Bilirubin, Urine Neg (Neg); Blood, Urine 1+ (Neg); Color, Urine Yellow (P-Yellow); Glucose Qualitative, Urine Neg (Neg); Ketones, Urine Neg (Neg); Leukocyte Esterase, Urine 1+ (Neg); Nitrite, Urine Neg (Neg); Protein, Urine Neg (Neg); Specific Gravity, Urine 1.015 (1.003-1.022); Urobilinogen, Urine 2+ (Normal)
[2020-07-25 15:54] LABS: Bacteria Few /hpf; Squamous Epithelial Cells Few /hpf (Few)
[2020-07-25 18:24] LABS: U Amphetamine Screen Not Detected; U Barbituate Screen Not Detected; U Benzodiazapine Screen Not Detected; U Buprenorphine Screen Not Detected; U Cannabinoids Screen Not Detected; U Cocaine Screen Not Detected; U Methadone Screen Not Detected; U Methamphetamine Screen Not Detected; U Opiates Screen Not Detected; U Oxycodone Screen Not Detected; U Phencyclidine Screen Not Detected; U Propoxyphene Screen Not Detected
--- NOTE | 2020-07-25 19:26 | NUR ---
Report from [place] SHIPPING/RECEIVING CLERK on homeless MAle being admitted obs status with toxic metabolic enceph, ? ITI. Was sleeping outdoors in sleeping bag soaked with urine. Await admission.
--- NOTE | 2020-07-25 23:34 | NUR ---
DR HERNANDEZ updated on pink tinged urine void over extended period of 375 & PVR of 523 ml. order for blanco cath for urinary retention & flomax to start tonight.
--- NOTE | 2020-07-26 02:43 | NUR ---
70 year old MAle admitted with encephalopathy. he has been fairly pleasant until recently when he began swearing & verbally abusive. Discussed intolerance of abuse to staff members. Tyler cath had been placed & he had over 700 ml drained from bladder. Multiple skin issues. scattered scab & reddness to rt hip area. He has not been trying to get out of bed. very poor historian & speech is garbled & difficult to understand. hx of cirrhosis & cellulitis, rhabdo, uti, sepsis, fractures, pneumonia, schitzophrenia. [place] [facility]. Unsure where PT lives he arrived to this floor with large amt of personal belongings in suitcases & bags. Urine soaked sleeping bag accompanied PT to floor. HAd lactulose for elevated ammonia level. Appetite good. very labile, verbally abusive.
--- NOTE | 2020-07-26 06:36 | NUR ---
PT refused lab Draw this AM. Continues labile intermittantly.
--- NOTE | 2020-07-26 16:50 | NUR ---
PT IS ALERT, ORIENTED TO SELF AND SURROUNDINGS, PT CAN BE IRRITABLE AT TIMES AND REFUSES CARE AT TIMES, PT HAS BEEN SLEEPY T/O THE DAY AWAKENS EASILY, THE PT HAS BEEN TAKING THE LACTULOSE SCHEDULED BUT SO FAR TODAY NO BM, PT WORKED WITH THE OCCUPATIONAL THERAPIST TODAY, HOWEVER, DECLINED PHYSICAL THERAPIST, PT APPEARS TO BE BREATHING EASILY ON RA AT THIS TIME, CALL LIGHT IN REACH
--- NOTE | 2020-07-27 05:59 | NUR ---
PT continues to cuss loudly while he appears to be sleeping. he becomes verbally abusive with staff about food. He refused lovenox & tylenol took flomax. PT had 1 liter of IVF with multivite. blanco cath patent drains 1800 ml of slightly cloudy urine. Up OOB x 1 to sit in chair for several hours.He continues with garbled speech & has odd affect at times. Complains loudly at times cussing & threatening. snores loudly when asleep. Took lactulose with no BM, had extra large bm x 1 yesterday reported on day shift.
--- NOTE | 2020-07-27 16:54 | NUR ---
PT IS A/OX2, SELF AND SURROUNDINGS, THE PT APPEARS TO BE BREATHING EASILY ON RA, THE PT BEEN DROWSY FOR MOST OF THE, PT IS COMPLIANT WITH TAKING THE ORDERED LACTULOSE, THE HAS HAD ONE LARGE BM SO FAR TODAY, PT CAN BE IRRITABLE/ANGRY AT TIMES AND NON COMPLIANT WITH CARE AT TIMES, SO FAR HAS BEEN EASILY DESCALATED, THE PTS SANCHEZ CATHETER IS IN PLACE AND BLADDER TRAING WAS STARTED ORDERED, PT DENIES ANY PAIN, APPEARS TO BE BREATHING EASILY ON RA AT THIS TIME, CALL DIDI REACH
--- NOTE | 2020-07-28 06:21 | NUR ---
PT with schitzophenia unmedicated & cirrhosis with elevated ammonia level continues compliant with lactulose use. He is very labile asking for excessive amts of food & carbonated beverages. He drank at least 6 sodas at 590 ml each multiple supplemental drinks snacks of pudding yogurt applesauce. He becomes verbally agressive when there is delay in recieving more food & drinks. @ large liquid brown stools after lactulose given. PT is homeless found in urine soaked sleeping bag on sidewalk. PT suays he is a [place] eara. PT refused lovenox. Able to ambulate with fww in room. Blanco cath bladder training through night. Planning to dc blanco this AM.DC planning continues.
[2020-07-28] MEDS ORDERED: TAMS.4ER PO (13:34)
--- NOTE | 2020-07-28 13:42 | NUR ---
PATIENT GIVEN DISCHARGE INSTRUCTIONS. ALL QUESTIONS ANSWERED. IV REMOVED. PATIENT STATES HE WILL NOT GO [facility] AND WILL BE DISCHARGING TO [facility].
--- NOTE | 2020-07-28 15:19 | NUR ---
PATIENT CONTINUES TO PACK HIS BELONGINGS WITH THE ASSISTANCE OF STAFF. PATIENT HAS BEEN NEEDING FREQUENT REST BREAKS.
--- NOTE | 2020-07-28 16:23 | NUR ---
NIKKY CHILEL, NURSING WEATHERIZATION INSTALLER, CAME UP TO TALK WITH THE PATIENT ABOUT DISCHARGING. THE PATIENT AGREED TO LEAVE [facility]. WE WILL TAKE PATIENT DOWN FOR PICK-UP BY [facility] MAYES UPON ARRIVAL AT APPROX 5PM.
--- NOTE | 2020-07-28 16:54 | NUR ---
NURSING COMPLIANCE ADMINISTRATOR CAME AND SPOKE WITH THE PATIENT AND WAS ABLE TO GET PATIENT TO AGREE TO DISCHARGE [facility]. SECURITY WAS THEN SENT UP TO ASSIST PATIENT OUT ALONG WITH RN. PATIENT ASSISTED OUT IN WHEELCHAIR WITH ALL HIS BELONGINGS AT 1640.
== END 2020-07-28 16:51 | disposition home or self-care (01) | DRG 442 ==
LOC: ER 13:38 → MEDS 13:39
PROVIDERS: Emergency Medicine; ADMIT Internal Medicine
DX: K72.00 Acute and subacute hepatic failure without coma (principal); E87.1 Hypo-osmolality and hyponatremia; E72.20 Disorder of urea cycle metabolism, unspecified; D69.6 Thrombocytopenia, unspecified; E87.6 Hypokalemia; F10.20 Alcohol dependence, uncomplicated; F20.9 Schizophrenia, unspecified; I10 Essential (primary) hypertension; K70.30 Alcoholic cirrhosis of liver without ascites; Z96.641 Presence of right artificial hip joint; Z23 Encounter for immunization; Z59.0 Homelessness; F17.210 Nicotine dependence, cigarettes, uncomplicated; B19.20 Unspecified viral hepatitis C without hepatic coma
CPT/HCPCS: 36415; 51701; 70450; 71045; 72125; 74177; 80053; 81001; 82140; 82550; 83605; 83690; 84484; 85025; 87040; 87086; 93005; 93010; 96361; 96365; 97110; 97162; 97165; 97530; 97535; 99285-25; A9270; G0008; G0480; J0696; J1650; J3411; J3475; J7030; J7042; Q2038; Q9967

== ENCOUNTER → 2021-04-04 | Outpatient (CLI) | payer MEDICARE ==
[~2021-04-04] MED LIST changes: +TAMS.4ER PO
== END | disposition home or self-care (01) ==
LOC: LAB 11:52 → LAB SHORT 11:52
DX: E72.20 Disorder of urea cycle metabolism, unspecified (principal)
CPT/HCPCS: 82140